=== PATIENT | female | born 1980 | race Caucasian/White ===

== ENCOUNTER 2019-12-01 11:05 | Emergency (ER) | payer BC, SELFPAY ==
[2019-12-01 11:14] VITALS: BP 206/112; PULSE 112; RESP 16; TEMP 37.2; O2SAT 95; BMI 41.1
--- NOTE | 2019-12-01 11:22 | ED_ITS ---
Entered by Eileen Liu, acting as scribe for HPI - Nausea/Vomiting/Diarrhea General: Chief complaint: Nausea/Vomiting/Diarrhea Stated complaint: Tired and weakness, N/V/D Time Seen by Provider: 12/01/19 11:22 Source: patient Mode of arrival: ambulatory Limitations: no limitations History of Present Illness: HPI Narrative: 39 yo female presents with nausea, vomiting and diarrhea. pt states this started several days ago. pt states she has had abdomen pain. pt states nothing makes this better or worse. pt denies any other symptoms at this time. MD elicited complaint: nausea, vomiting, diarrhea and abdominal pain Onset (ago): day(s) (several days) Description of vomiting: bilious Associated nausea: Yes Associated abdominal pain: Yes Pain consistency: constant Severity: mild Exacerbating factors: none Relieving factors: none Associated symtoms: Reports fatigue and nausea; Denies chest pain or dysuria Treatment prior to arrival: none Review of Systems General: Reports: 10 or more systems reviewed and unremarkable except in HPI and below Const: Reports: fatigue and change in sleep pattern ENMT: Denies: throat pain, ear pain, nasal discharge or nasal congestion Card: Denies: chest pain, edema, shortness of breath on exertion or shortness of breath when lying down Resp: Denies: shortness of breath, productive cough or non-productive cough GI: Reports: abdominal pain, nausea, vomiting and diarrhea : Denies: flank pain, difficulty urinating, painful urination, urinary frequency or urinary urgency Skin/Breast: Denies: rash or itching PFSH ED PFSH: Social History Smoking and tobacco status: never smoked Physical Exam Const: COMMON NORMALS: no apparent distress GENERAL APPEARANCE: cooperative and comfortable ORIENTATION/CONSCIOUSNESS: Yes awake, Yes oriented to person, Yes oriented to place and Yes oriented to time HENMT: COMMON NORMALS: normocephalic, head/scalp atraumatic, hearing grossly normal bilaterally, external ears normal, EAC's normal, TM's normal bilaterally, nasal mucous membranes and turbinates normal, moist oral mucous membranes and oropharynx normal HEAD & SCALP: normocephalic and atraumatic NOSE: nasal mucous membranes and turbinates normal EXTERNAL EAR: Yes external ears normal EXTERNAL AUDITORY CANAL: EAC's normal TYMPANIC MEMBRANE: TM's normal bilaterally Eye: COMMON NORMALS: PERRL, EOMs intact bilaterally, conjunctivae normal and no scleral icterus CONJUNCTIVA: Yes conjunctivae normal PUPIL: Yes PERRL Neck/C-Spine: COMMON NORMALS: full ROM, no lymphadenopathy, supple and no JVD Lymph: LYMPHATIC: no lymphadenopathy noted and no lymphedema noted Resp: COMMON NORMALS: normal respiratory effort, no retractions, no use of accessory muscles and clear to auscultation bilaterally AUSCULTATION: clear to auscultation bilaterally Cardio: COMMON NORMALS: no JVD, regular rate, regular rhythm and no murmurs RATE: regular rate RHYTHM: regular rhythm Extremity: COMMON NORMALS: normal to inspection, normal capillary refill, no clubbing, cyanosis or edema, no calf tenderness and no pedal edema Neuro: SENSORIUM/ORIENTATION: Yes oriented to person, Yes oriented to place and Yes oriented to time Skin: COMMON NORMALS: no rashes or lesions noted GENERAL SKIN EXAM: no rashes or lesions noted Course ED course: Reviewed findings with the patient. We will go and discharge home on antibiotics. Chest about her blood pressure initial blood pressure was over 200 blood pressure time of discharge 181/112. She tells me she chronically has elevated blood pressure when she is at the doctor's office or the ER not particularly inclined to treat her at this point on Thursday may actually cause some hypotension we did give her single dose of amlodipine asked her to follow- up with her primary care doctor's office for persist they can discuss with her putting her on long-term antihypertensives. She has worsening problems or change symptoms return to the emergency room. Vital Signs: Vital signs: Vital Signs Temperature 98.9 F 12/01/19 11:14 Pulse Rate 101 H 12/01/19 14:31 Respiratory Rate 16 12/01/19 14:31 Blood Pressure 181/112 12/01/19 14:31 Pulse Oximetry 96 12/01/19 14:31 MDM - Nausea/Vomiting/Diarrhea Lab Data: Labs: Lab Results 12/01/19 12/01/19 12/01/19 Range/Units 11:40 11:40 13:00 WBC 13.0 H (4.0-10.0) 10^3/ uL RBC 4.85 (4.1-5.3) 10^6/u L Hgb 11.7 (11.5-15.3) g/dL Hct 37.3 (37.0-47.0) % MCV 76.9 L (81-99) fL MCH 24.1 L (28.0-34.0) pg MCHC 31.4 (30.0-36.0) g/dL RDW 15.4 H (12.1-15.1) % Plt Count 553 H (130-400) 10^3/c mm MPV 8.7 (7.4-10.4) fL Neut % (Auto) 78.7 % Lymph % (Auto) 16.7 % [place] % (Auto) 3.8 % Eos % (Auto) 0.2 % Baso % (Auto) 0.3 % Neut # (Auto) 10.2 H (1.8-7.7) 10^3/u L Lymph # (Auto) 2.2 (0.8-4.8) 10^3/u L [place] # (Auto) 0.5 (0.2-0.9) 10^3/u L Eos # (Auto) 0.0 (0.0-0.8) 10^3/u L Baso # (Auto) 0.0 (0.0-0.1) 10^3/u L Nucleated RBC % (a uto) 0 % Nucleated RBCs # 0.0 /100WBC Sodium 136 (136-145) mmol/L Potassium 3.5 (3.5-5.1) mmol/L Chloride 97 L (98-107) mmol/L Carbon Dioxide 25 (22-29) mmol/L Anion Gap 17.5 (5-19) BUN 9 (6-20) mg/dL Creatinine 0.6 (0.5-0.9) mg/dL GFR Calculation 110.7 (90-130) mL/min Glucose 146 H (65-115) mg/dL Calcium 9.7 (8.5-10.5) mg/dL Total Bilirubin 0.2 (0.15-1.2) mg/dL AST 25 (0-32) U/L ALT 28 (0-33) U/L Alkaline Phosphata se 107 H (35-105) IU/L Total Protein 8.4 (6.6-8.7) g/dL Albumin 4.4 (3.5-5.2) g/dL Globulin 4.0 (1.3-4.6) g/dL Lipase 15 (13-60) U/L Urine Color Yellow (Yellow) Urine Appearance Sl hazy (CLEAR) Urine pH 6 (5-7) Ur Specific Gravit y 1.020 (1.005-1.030) Urine Protein 1+ H (Negative) Urine Glucose (UA) Norm (Normal) Urine Ketones 1+ H (Negative) Urine Blood Neg (Negative) Urine Nitrate Negative (Negative) Urine Bilirubin 1+ H (NEGATIVE) Urine Urobilinogen 1 H (Negative) mg/dL Ur Leukocyte Elif ase Negative (Negative) Urine RBC None (0-2) /hpf Urine WBC 0-4 H (0-5) /hpf Ur Squamous Epith Cells 25-40 H (0-5) Urine Bacteria Trace (NONE) Urine Mucus 1+ Imaging Data^: CXR: Radiologist's impression: [address] [address] XRay Report Signed Patient: Naye Mace #: [id number] : 1980Acct#:[id number] Age/Sex: 39 / FADM Date: 12/01/19 Loc: ERRoom/Bed: Attending Dr: Ordering Provider/Ordering MD: Louis Abernathy DO Date of Service: 12/01/19 Procedure(s): XR chest 1V portable [id number] Accession Number(s): [id number] Report Number: [id number] WS: [id number] XR chest 1V portable [id number] REASON FOR EXAM: dyspnea/cough FINDINGS: Comparison today of December 10, 2016. An alveolar infiltrate is seen in the basilar portion of the right lower lung. The heart and mediastinal interfaces are normal. There are scattered nodules in the left upper and mid lung but these all appear to be benign. The hilum and apices are normal. XR/XR chest 1V portable [id number] IMPRESSION: Early pneumonia right lower lung. Dictated By:Geovanny Michel DO Signed By:Geovanny Michel DOSigned Date/Time:12/01/19 3033 Discharge Plan Discharge Patient Disposition: Home, Self-Care Clinical Impression: Pneumonia Condition: Stable Prescriptions: New doxycycline hyclate 100 mg capsule 100 mg PO BID 10 Days Qty: 20 RF: 0 No Action Celexa 40 mg Tablet 40 mg PO DAILY RF: 0 Discharge Orders: Discharge Order (Routine); Ordered 12/01/19 Ordered By: Louis Abernathy Referrals: Tahir Evans MD [Family Provider] - Discharge Diet: Usual diet Discharge Activity: Resume usual activity Activity Restrictions/Additional Instructions: Follow-up with your primary care doctor return to emergency room if not improv ing Discharge Date/Time: 12/01/19 15:18 Coding Level of Care Code ED Health Coordinator for Chg Fwd Exam Comprehensive The documentation recorded by the Noe benjamin Bridget Annette, accurately reflects the service I personally performed and the decisions made by Josemanuel breaux Curtis L, DO Dec 01, 2019 11:05
--- NOTE | 2019-12-01 11:33 | XR_ITS ---
WS: [id number] XR chest 1V portable [id number] REASON FOR EXAM: dyspnea/cough FINDINGS: Comparison today of December 10, 2016. An alveolar infiltrate is seen in the basilar portion o f the right lower lung. The heart and mediastinal interfaces are normal. There are scattered nodules in the left upper and mid lung but these all appear to be benign. The hilum and apices are normal. XR/XR chest 1V portable [id number] IMPRESSION: Early pneumonia right lower lung.
[2019-12-01 11:47] LABS: Basophils % 0.3 %; Eosinophils % 0.2 %; Hematocrit 37.3 % (37.0-47.0); Hemoglobin 11.7 g/dL (11.5-15.3); Lymphocytes # 2.2 10^3/uL (0.8-4.8); Lymphocytes % 16.7 %; Mean Corpuscular HGB Conc 31.4 g/dL (30.0-36.0); Mean Corpuscular Hemoglobin 24.1 pg (28.0-34.0); Mean Corpuscular Volume 76.9 fL (81-99); Mean Platelet Volume 8.7 fL (7.4-10.4); Monocytes # 0.5 10^3/uL (0.2-0.9); Monocytes % 3.8 %; Neutrophils # 10.2 10^3/uL (1.8-7.7); Neutrophils % 78.7 %; Nucleated Red Blood Cells % 0 %; Platelet Count 553 10^3/cmm (130-400); Red Blood Count 4.85 10^6/uL (4.1-5.3); Red Cell Distribution Width 15.4 % (12.1-15.1)
[2019-12-01 12:05] LABS: Alanine Aminotransferase 28 U/L (0-33); Albumin Level 4.4 g/dL (3.5-5.2); Alkaline Phosphatase 107 IU/L (35-105); Anion Gap 17.5 (5-19); Aspartate Amino Transferase 25 U/L (0-32); Blood Urea Nitrogen 9 mg/dL (6-20); Calcium 9.7 mg/dL (8.5-10.5); Carbon Dioxide 25 mmol/L (22-29); Chloride 97 mmol/L (98-107); Creatinine Clr Calc Pharmacy 150.2548; Glomerular Filtration Rate 110.7 mL/min (90-130); Glucose 146 mg/dL (65-115); Lipase 15 U/L (13-60); Potassium 3.5 mmol/L (3.5-5.1); Sodium 136 mmol/L (136-145); Total Bilirubin 0.2 mg/dL (0.15-1.2); Total Protein 8.4 g/dL (6.6-8.7)
[2019-12-01 13:39] LABS: Urine Appearance SL Hazy (CLEAR); Urine Color Yellow (Yellow)
[2019-12-01 13:40] LABS: Add Urine Microscopic? YES; Bilirubin Urine 1+ (NEGATIVE); Blood Urine Neg (Negative); Glucose Urine UA Norm (Normal); Ketones Urine 1+ (Negative); Leukocyte Esterase Urine Negative (Negative); Nitrate Urine Negative (Negative); Protein Urine 1+ (Negative); Urobilinogen Urine 1 mg/dL (Negative); pH Urine 6 (5-7)
[2019-12-01 13:49] LABS: Bacteria Urine TRACE; Squamous Epithelial Cell Urine 25-40 (0-5); WBC Urine 0-4 /hpf (0-5)
[2019-12-01 13:50] LABS: Mucus Urine 1+
[2019-12-01] MEDS: amlodipine 5 mg Tablet PO (14:25)
--- NOTE | 2019-12-01 14:28 | PC.NURSE ---
PATIENT CONCERNED ABOUT HER BLOODPRESSURE EMD INFORMED AND ORDERS RECEIVED
[2019-12-01 14:31] VITALS: BP 181/112; PULSE 101; RESP 16; O2SAT 96
== END 2019-12-01 15:18 | disposition home or self-care (01) ==
PROVIDERS: Emergency Provider Family Medicine; Family Provider Family Medicine
DX: J18.9 Pneumonia, unspecified organism (principal); R03.0 Elevated blood-pressure reading, without diagnosis of hypertension
CPT/HCPCS: 12345; 36415; 71045; 80053; 81001; 83690; 85025; 99282; 99283; A9270

== ENCOUNTER 2020-03-05 13:24 | Outpatient (CLI) | payer BC, SELFPAY ==
--- NOTE | 2020-03-05 13:28 | MR_ITS ---
WS: [id number] MRI LEFT KNEE HISTORY: LEFT KNEE PAIN COMPARISON: 02/22/2020 Anterior cruciate ligament: There is increased T2 signal along the ACL. Fibers are intact although th ere is some fluid between the ACL and the condyle which suggests there may be a partial tear. Ligamen t is thin along the superior aspect. There is no complete tear. Posterior cruciate ligament: Intact. Medial collateral ligament: Intact. Posterior lateral corner structures: Intact. Medial menisci: Abnormal signal in the posterior horn. Abnormal signal extends to the superior articu lar surface in the mid body. There is abnormal signal throughout the posterior aspect of the meniscal horn which extends towards the inferior articular surface but may not completely through the meniscu s. Lateral meniscus: Intact. Normal signal, size and shape. Extensor mechanism: Distal quadriceps tendon and patellar tendons are intact. Fluid and soft tissue: There is a small suprapatellar joint effusion. There is small amount of fluid in the expected location of Monzon's cyst. There is an increased signal along the MCL. Osseous and articular structures: Patellofemoral compartment: Normal. Medial compartment: No marrow edema or fracture. Small subchondral cyst in the anterior medial femora l condyle. Lateral compartment: Negative. MR/MR knee LT wo con* [id number] IMPRESSION: 1. Complex tear posterior horn medial meniscus. Tear extends to the superior a rticular surface. Less certain the tear extends to the inferior articular surfa ce. 2. Mild MCL sprain. 3. Small joint effusion. 4. Increase fluid signal on the ACL. Partial tear suspected along the superior attachment.
== END 2020-03-05 13:25 | disposition home or self-care (01) ==
LOC: RADSHAW 13:26
PROVIDERS: Family Provider Family Medicine; PCP Family Medicine; Visit Provider Nurse Practitioner
DX: M25.562 Pain in left knee (principal); S83.242A Other tear of medial meniscus, current injury, left knee, initial encounter; X58.XXXA Exposure to other specified factors, initial encounter; M25.462 Effusion, left knee
CPT/HCPCS: 73721

== ENCOUNTER 2020-03-21 11:09 | Day surgery (SDC) | payer BC, SELFPAY ==
[2020-03-20 10:30] VITALS: BMI 41.1
[2020-03-21] VITALS (13 sets, daily range): BP systolic 120–183; BP diastolic 64–117; PULSE 81–105; RESP 15–23; TEMP 36.1–37.3; O2SAT 93–98
[2020-03-21] MEDS: sodium chloride 0.9% 500 ML 999 ML IV (11:37)
[2020-03-21 11:44] LABS: OR HCG Qualitative Urine Negative (Negative)
--- NOTE | 2020-03-21 11:52 | ANES.PREANE2 ---
Pre-Anesthetic Assessment Pre-Anesthetic Assessment: Height/Weight: Height 1.63 m Weight 108.862 kg Temp Pulse Resp BP Pulse Ox 98.1 F 105 H 20 H 183/117 96 03/21/20 11:20 03/21/20 11:20 03/21/20 11:20 03/21/20 11:20 03/21/20 11:20 Preop Diagnosis: Left medial meniscal tear Proposed Procedure: Operation Date: 03/21/20 12:35 Proposed Procedures p Left knee arthroscopy with medial meniscectomy (43872) S83.242A(Left) - Kumar Islas MD Familial anesthetic complications: NOne Was Beta Mattie taken within 24 hours: N/A Last intake: Intake Last Liquid Date 03/20/20 Last Liquid Time 23:40 Last Solid Date 03/20/20 Last Solid Time 23:40 Social: Social History: No alcohol and No tobacco Exam: Pre-Anes Outpt Exam: alert, oriented x 3, clear to auscultation bilaterally and regular rate & rhythm Additional Exam Findings (including area of procedure): no adderall for a couple of weeks Airway: Cervical ROM: WNL MP: 3 Dentition: Full Pulmonary: Pulmonary: None reported CV/HEM: CV/HEM: None reported : : None reported Hepatic: Hepatic: None reported GI: GI: None reported Metabolic: Metabolic: Morbid obesity Musc/skel: Musc/skel: None reported Neuropsych: Neuropsych: None reported Anesthetic Plan: ASA status: 2 Anesthesia: General Risk of > 500 ml blood loss (7ml/kg in children): No Meds/Allergies Current Medications: Current Medications Generic Name Dose Route Start Last Admin Trade Name Freq PRN Reason Stop Dose Admin Sodium Chloride 500 mls @ 999 mls /hr 03/21/20 08:33 03/21/20 11:37 Sodium Chloride 0.9% IV 999 mls/hr .Q31M PRN Administration HYPOTENSION PFSH Anesthesia PFSH: Social History Smoking and tobacco status: never smoked Female Reproductive History: Date of last menstrual period: 03/06/20 Data Anesthesia Other Labs: Laboratory Results - last 48 hr 03/21/20 11:43 Urine HCG, Qual Negative Cardiac Studies: No Data to Display
--- NOTE | 2020-03-21 12:31 | W.PM.OPSUD ---
Surgery/Procedure H&P Update DATE OF PROCEDURE: March 21, 2020 DATE H&P PERFORMED: 03/15/00 PREOP DIAGNOSIS: Left medial meniscal tear PLANNED PROCEDURE: Operation Date: 03/21/20 12:35 Proposed Procedures p Left knee arthroscopy with medial meniscectomy (79055) S83.242A(Left) - Kumar Islas MD
[2020-03-21] MEDS: morphine 4 mg/mL SDV 1 mL 8 MG XX (13:01)
--- NOTE | 2020-03-21 13:18 | PM.OP ---
Operative Report Date of procedure: March 21, 2020 Pre-op Diagnosis: Left medial meniscal tear Post-op diagnosis: same Post-op Findings: Same Procedure Done: Arthroscopic partial left medial meniscectomy Surgeon: Kumar Islas Anesthesia: General Estimated blood loss (mL): 5 Tourniquet time (min): 0 Findings: The patient had a flap tear in the middle third of the medial meniscus involving approximately the central 60%. There is minimal softening and fibrillation over the medial femoral condyle. The lateral compartment and patellofemoral compartment were pristine Condition: stable Disposition: PACU Procedure: The patient was taken to the operating room and given a general anesthesia. Knee was infiltrated with 30 cc of 0.5% Marcaine and 10 mg of morphine. The leg was prepped and draped in the usual fashion and a timeout performed. The knee was entered through standard inferior medial and inferior lateral portals. The diagnostic portion of the arthroscopy was performed and the flap tear of the medial meniscus identified. The tear appeared relatively dysvascular and was not thought to be suitable for repair. Realizing an incisor shaver the flap was debrided back with ease to a stable rim leaving approximately 30 to 40% of the middle third of the meniscus remaining. The rim was cleaned up with a [employer] probe leaving a stable base of tissue. Areas of softening and slight fissuring over the medial femoral condyle was stable not thought to benefit from additional debridement. Cruciate collateral ligaments were inspected and found to be healthy. The lateral compartment is inspected and found to be free of chondromalacia with a normal lateral meniscus. The patellofemoral compartment was inspected and found to be free of chondromalacia. The knee was irrigated with saline. Portals were closed with 3-0 Prolene. Sterile dressings were applied. The patient was extubated taken recovery in stable condition.
[2020-03-21] MEDS: fentaNYL 50 mcg/mL INJ 2mL IVP (13:39)
[2020-03-21] MEDS: morphine 4 mg/mL SDV 1 mL 2 MG IVP (13:45)
--- NOTE | 2020-03-21 14:03 | SUR.PHASEI ---
1400 PATIENT TO OPS. DRESSING INTACT TO LEFT KNEE, LEFT PEDAL PULSE STRONG AND INTACT. ICE PACK IN PLACE FOR COMFORT.
[2020-03-21] MEDS: HYDROcodone-acetaminophen 7.5-325 mg Tablet 1 TAB PO (14:37)
== END 2020-03-21 14:58 | disposition home or self-care (01) ==
PROVIDERS: Anesthesiology; PCP Family Medicine; Visit Provider Orthopaedic Surgery
PROC: (CPT 29870; principal; 2020-03-21 12:35)
DX: S83.242A Other tear of medial meniscus, current injury, left knee, initial encounter (principal); X58.XXXA Exposure to other specified factors, initial encounter; I10 Essential (primary) hypertension; E66.01 Morbid (severe) obesity due to excess calories; Z68.41 Body mass index [BMI] 40.0-44.9, adult
CPT/HCPCS: 29881; 12345; 84703; J0690; J1100; J1885; J2001; J2250; J2270; J2405; J2704; J3010; J3490; J7040

== ENCOUNTER 2020-11-02 01:28 | Emergency (ER) | payer SELFPAY ==
[2020-11-02 01:32] VITALS: BP 142/114; PULSE 119; RESP 28; TEMP 36.7; O2SAT 99; BMI 39.4
--- NOTE | 2020-11-02 01:33 | CTR_ITS ---
PROCEDURE INFORMATION: Exam: CT Neck With Contrast Exam date and time: 11/02/2020 1:55 AM Age: 40 years old Clinical indication: Dysphagia / difficulty swallowing and dyspnea / difficulty breathing; Painful swallowing and throat pain; Patient HX: Submandibular swelling and dysphagia. C/O pain. Adenoidectomy. ; Additional info: Abscess TECHNIQUE: Imaging protocol: Computed tomography images of the neck with intravenous contrast. Radiation optimization: All CT scans at this facility use at least one of these dose optimization techniques: automated exposure control; mA and/or kV adjustment per patient size (includes targeted exams where dose is matched to clinical indication); or iterative reconstruction. Contrast material: OMNI 300; Contrast volume: 95 ml; Contrast route: INTRAVENOUS (IV); COMPARISON: No relevant prior studies available. RADIATION DOSE METRICS: Total DLP (mGy-cm): 690.01 FINDINGS: Nasopharynx: Unremarkable. Oropharynx: A calcification is seen within the left tonsil compatible with a tonsillolith. There is marked swelling of the right tonsil. The tonsil measures approximately 3.8 cm AP dimension by 3.1 cm transverse dimension by 4.6 cm craniocaudal dimension. There is heterogeneous hypodense material seen diffusely within the right tonsil compatible with tonsillar abscess formation. Fluid attenuation and edema seen within the fascial planes extending from the pterygoid process on the right caudally to the level of the hyoid bone. Hypopharynx: Unremarkable. Larynx: Unremarkable. Normal epiglottis. Retropharyngeal space: Unremarkable. Submandibular/Parotid glands: Normal. Glands are normal in size. Thyroid: Normal. No enlarged or calcified nodules. Lymph nodes: There are prominent level 1 and 1B lymph nodes seen on the right, the largest seen at level 1B measuring 14.6 mm transverse dimension. Trachea: Visualized trachea is unremarkable. Lungs: Unremarkable as visualized. Bones/joints: See Oropharynx finding. Soft tissues: Unremarkable. No significant soft tissue swelling. CT/CT neck w con* [id number] IMPRESSION: 1. Right tonsillitis with prominent tonsillar swelling and abscess formation. 2. Prominent level 1 and 1B lymph nodes seen on the right. Radiation Dose CTDIVOL = (mGy): DLP = 690.01 (mGy-cm)
[2020-11-02 01:41] LABS: Basophils # 0.1 10^3/uL (0.0-0.1); Basophils % 0.4 %; Eosinophils # 0.1 10^3/uL (0.0-0.8); Eosinophils % 0.5 %; Hematocrit 36.7 % (37.0-47.0); Hemoglobin 11.2 g/dL (11.5-15.3); Lymphocytes # 2.3 10^3/uL (0.8-4.8); Lymphocytes % 10.4 %; Mean Corpuscular HGB Conc 30.5 g/dL (30.0-36.0); Mean Corpuscular Hemoglobin 23.3 pg (28.0-34.0); Mean Corpuscular Volume 76.5 fL (81-99); Mean Platelet Volume 8.7 fL (7.4-10.4); Monocytes # 1.7 10^3/uL (0.2-0.9); Monocytes % 7.9 %; Neutrophils # 17.79 10^3/uL (1.8-7.7); Neutrophils % 80.5 %; Nucleated Red Blood Cells % 0 %; Platelet Count 572 10^3/cmm (130-400); Red Cell Distribution Width 15.4 % (12.1-15.1); White Blood Count 22.1 10^3/uL (4.0-10.0)
[2020-11-02] MEDS: sodium chloride 0.9% 1,000 ML 999 ML IV (01:42)
[2020-11-02] MEDS: dexamethasone 4 mg/mL INJ 10 MG IVP (01:44)
[2020-11-02] MEDS: clindamycin 900 MG/50 ML PREMIX 100 MG IV (01:46)
--- NOTE | 2020-11-02 01:49 | W.ED.URI ---
HPI - URI/Sore Throat General: Chief Complaint: Upper Respiratory Infection Stated Complaint: difficulty breathing, throat swelling Time Seen by Provider: 11/02/20 01:30 Source: patient Mode of arrival: ambulatory Limitations: no limitations History of Present Illness: HPI Narrative: 40-year-old female states she has had a sore throat over the last 2 days. States she now feels like she is swelling her throat does have a muffled voice. States she is having some pain with swallowing difficulty swallowing. She denies any shortness of breath. She has any worsening improving factors. She has no history of peritonsillar abscess in the past. Denies any vomiting or diarrhea. Associated symptoms: Deny abdominal pain, chills, chest pain, diarrhea, fever(s), headache(s), nausea or vomiting Review of Systems Const: Denies: fever(s), chills, body aches or change in appetite Eyes: Denies: blurry vision or eye discomfort ENMT: Reports: throat pain; Denies: dental pain Card: Denies: chest pain Resp: Denies: dyspnea GI: Denies: abdominal pain, nausea, vomiting or diarrhea : Denies: dysuria Musc: Denies: neck pain or back pain Skin/Breast: Denies: rash Neuro: Denies: headache(s) Psych: Denies: depression Adilson/Lymph: Denies: easy bruising All/Imm: Denies: urticaria PFSH ED PFSH: Social History Smoking and tobacco status: never smoked Female Reproductive History: Date of last menstrual period: 03/06/20 Physical Exam Const: COMMON NORMALS: no acute distress, patient oriented x3 and healthy appearing HENMT: COMMON NORMALS: normocephalic and atraumatic HEAD & SCALP: normocephalic and atraumatic OTHER: Likely peritonsillar abscess to the right with uvula deviation. She is able to handle her secretions and swallow Eye: COMMON NORMALS: Equal, round and reactive pupils present and EOMs intact bilaterally PUPIL: Yes Equal, round and reactive pupils present Neck/C-Spine: COMMON NORMALS: full ROM and supple Chest: COMMONS NORMALS: normal inspection of the chest and normal palpation of entire chest wall Resp: COMMON NORMALS: normal respiratory effort, No retractions, No use of accessory muscles and clear to auscultation bilaterally AUSCULTATION: clear to auscultation bilaterally Cardio: COMMON NORMALS: regular rate, regular rhythm and No murmurs present (Cardio) RATE: regular rate RHYTHM: regular rhythm GI: COMMON NORMALS: Normal to inspection, nondistended, normoactive bowel sounds present, Soft to palpation, non-tender and no masses PALPATION: Yes Soft to palpation Extremity: COMMON NORMALS: normal to inspection and full ROM Neuro: COMMON NORMALS: patient oriented x3, moves all extremities and no focal motor deficits Psych: COMMON NORMALS: mental status grossly normal, Normal thought process present and cooperative THOUGHT PROCESS: Normal thought process present Skin: COMMON NORMALS: no rashes or lesions noted and no wounds GENERAL SKIN EXAM: no rashes or lesions noted Course Vital Signs: Vital signs: Vital Signs Temperature 98.1 F 11/02/20 01:32 Pulse Rate 96 11/02/20 03:44 Respiratory Rate 20 H 11/02/20 03:44 Blood Pressure 183/93 11/02/20 03:44 Pulse Oximetry 98 11/02/20 03:44 MDM - URI/Sore Throat MDM Narrative: Medical decision making narrative: Patient presents with peritonsillar abscess. She able to protect her own airway and handling secretions. I did offer to drain her abscess here but she states she would like to have it drained by ENT. I did speak to ENT at [facility] and they are going to see her in the morning. Patient has had improvement here with clindamycin and Decadron IV. Will prescribe her antibiotics for home as well. She is return if worsening and she understands agrees to plan. Lab Data: Labs: Lab Results 11/02/20 11/02/20 Range/Units 01:39 01:39 WBC 22.1 H (4.0-10.0) 10^3/ uL RBC 4.80 (4.1-5.3) 10^6/u L Hgb 11.2 L (11.5-15.3) g/dL Hct 36.7 L (37.0-47.0) % MCV 76.5 L (81-99) fL MCH 23.3 L (28.0-34.0) pg MCHC 30.5 (30.0-36.0) g/dL RDW 15.4 H (12.1-15.1) % Plt Count 572 H (130-400) 10^3/c mm MPV 8.7 (7.4-10.4) fL Neut % (Auto) 80.5 % Lymph % (Auto) 10.4 % [place] % (Auto) 7.9 % Eos % (Auto) 0.5 % Baso % (Auto) 0.4 % Neut # (Auto) 17.79 H (1.8-7.7) 10^3/u L Lymph # (Auto) 2.3 (0.8-4.8) 10^3/u L [place] # (Auto) 1.7 H (0.2-0.9) 10^3/u L Eos # (Auto) 0.1 (0.0-0.8) 10^3/u L Baso # (Auto) 0.1 (0.0-0.1) 10^3/u L Nucleated RBC % (a uto) 0 % Nucleated RBCs # 0.0 /100WBC Sodium 135 L (136-145) mmol/L Potassium 3.5 (3.5-5.1) mmol/L Chloride 97 L (98-107) mmol/L Carbon Dioxide 26 (22-29) mmol/L Anion Gap 15.5 (5-19) BUN 7 (6-20) mg/dL Creatinine 0.5 (0.5-0.9) mg/dL GFR Calculation 136.0 H (90-130) mL/min Glucose 127 H (65-115) mg/dL Calculated Osmolal ity 280 L (285-295) mOsm/k g Calcium 8.8 (8.5-10.5) mg/dL Total Bilirubin 0.4 (0.15-1.2) mg/dL AST 12 (0-32) U/L ALT 14 (0-33) U/L Alkaline Phosphata se 124 H (35-105) IU/L Total Protein 8.2 (6.6-8.7) g/dL Albumin 3.8 (3.5-5.2) g/dL Globulin 4.4 (1.3-4.6) g/dL Imaging Data^: Other CT: Radiologist's impression: [address] [address] [address] Scan Report Signed Patient: Naye Mace Unit #: [id number] : 1980 Age/Sex: 40 / F ADM Date: 11/02/20 Loc: ER Room/Bed: Attending Dr: Ordering Provider/Ordering MD: Robert Garvey MD Date of Service: 11/02/20 Procedure(s): CT neck w con* [id number] Accession Number(s): [id number] Report Number: [id number] PROCEDURE INFORMATION: Exam: CT Neck With Contrast Exam date and time: 11/02/2020 1:55 AM Age: 40 years old Clinical indication: Dysphagia / difficulty swallowing and dyspnea / difficulty breathing; Painful swallowing and throat pain; Patient HX: Submandibular swelling and dysphagia. C/O pain. Adenoidectomy. ; Additional info: Abscess TECHNIQUE: Imaging protocol: Computed tomography images of the neck with intravenous contrast. Radiation optimization: All CT scans at this facility use at least one of these dose optimization techniques: automated exposure control; mA and/or kV adjustment per patient size (includes targeted exams where dose is matched to clinical indication); or iterative reconstruction. Contrast material: OMNI 300; Contrast volume: 95 ml; Contrast route: INTRAVENOUS (IV); COMPARISON: No relevant prior studies available. RADIATION DOSE METRICS: Total DLP (mGy-cm): 690.01 FINDINGS: Nasopharynx: Unremarkable. Oropharynx: A calcification is seen within the left tonsil compatible with a tonsillolith. There is marked swelling of the right tonsil. The tonsil measures approximately 3.8 cm AP dimension by 3.1 cm transverse dimension by 4.6 cm craniocaudal dimension. There is heterogeneous hypodense material seen diffusely within the right tonsil compatible with tonsillar abscess formation. Fluid attenuation and edema seen within the fascial planes extending from the pterygoid process on the right caudally to the level of the hyoid bone. Hypopharynx: Unremarkable. Larynx: Unremarkable. Normal epiglottis. Retropharyngeal space: Unremarkable. Submandibular/Parotid glands: Normal. Glands are normal in size. Thyroid: Normal. No enlarged or calcified nodules. Lymph nodes: There are prominent level 1 and 1B lymph nodes seen on the right, the largest seen at level 1B measuring 14.6 mm transverse dimension. Trachea: Visualized trachea is unremarkable. Lungs: Unremarkable as visualized. Bones/joints: See Oropharynx finding. Soft tissues: Unremarkable. No significant soft tissue swelling. CT/CT neck w con* [id number] IMPRESSION: 1. Right tonsillitis with prominent tonsillar swelling and abscess formation. 2. Prominent level 1 and 1B lymph nodes seen on the right. Radiation Dose CTDIVOL = (mGy): DLP = 690.01 (mGy-cm) Discharge Plan Discharge Patient Disposition: Home Clinical Impression: Abscess, peritonsillar Condition: Stable Prescriptions: New [place] 5-325 mg tablet 1 tab PO Q6H PRN (Reason: pain) Qty: 14 RF: 0 ondansetron 4 mg tablet,disintegrating 4 mg PO Q6H PRN (Reason: nausea and vomiting) Qty: 14 RF: 0 clindamycin HCl 300 mg capsule 300 mg PO TID 7 Days Qty: 21 RF: 0 No Action hydrocodone-acetaminophen [[place]] 7.5-325 mg tablet 1 tab PO Q4H PRN (Reason: pain) 7 Days Qty: 30 RF: 0 hydrocodone-acetaminophen [[place]] 7.5-325 mg tablet 1 tab PO Q4H PRN (Reason: pain) 7 Days Qty: 30 RF: 0 citalopram [Celexa] 40 mg Tablet 40 mg PO DAILY RF: 0 dextroamphetamine-amphetamine [Adderall XR] 15 mg Capsule,Extended Release 24hr 15 mg PO DAILY RF: 0 [place] 7.5-325 mg tablet 1 tab PO Q4H Qty: 30 RF: 0 Discharge Orders: Discharge ED (Routine); Ordered 11/02/20 Ordered By: Robert Garvey Referrals: [facility] [Other] - 1-3 days [facility] [Other] - 1-3 days Tahir Evans MD [Primary Care Provider] - Discharge Diet: Advance as tolerated Discharge Activity: Resume usual activity Patient Instructions: Peritonsillar Abscess (ED) Coding Level of Care Code ED Judicial Reporter for Gonzalezg Fwd Exam Comprehensive
[2020-11-02] MEDS: iohexol 300 mg/mL 100 mL Btl IV (02:01)
[2020-11-02 02:07] LABS: Alanine Aminotransferase 14 U/L (0-33); Albumin Level 3.8 g/dL (3.5-5.2); Alkaline Phosphatase 124 IU/L (35-105); Anion Gap 15.5 (5-19); Aspartate Amino Transferase 12 U/L (0-32); Blood Urea Nitrogen 7 mg/dL (6-20); Calcium 8.8 mg/dL (8.5-10.5); Carbon Dioxide 26 mmol/L (22-29); Chloride 97 mmol/L (98-107); Globulin 4.4 g/dL (1.3-4.6); Glucose 127 mg/dL (65-115); Osmolality Calculated 280 mOsm/kg (285-295); Potassium 3.5 mmol/L (3.5-5.1); Sodium 135 mmol/L (136-145); Total Bilirubin 0.4 mg/dL (0.15-1.2); Total Protein 8.2 g/dL (6.6-8.7)
[2020-11-02 02:26] VITALS: BP 167/92; PULSE 94; RESP 19; O2SAT 94
[2020-11-02 03:03] VITALS: BP 158/102; PULSE 88; RESP 18; O2SAT 96
[2020-11-02] MEDS: morphine 4 mg/mL SDV 1 mL IVP (03:43)
[2020-11-02 03:44] VITALS: BP 183/93; PULSE 96; RESP 20; O2SAT 98
[2020-11-02] MEDS: HYDROcodone-acetaminophen 7.5-325 mg Tablet 1 TAB PO (04:44)
[2020-11-02 05:04] VITALS: BP 142/102; PULSE 88; RESP 18; O2SAT 95
== END 2020-11-02 05:04 | disposition home or self-care (01) ==
PROVIDERS: Emergency Provider Emergency Medicine; PCP Family Medicine
DX: J36 Peritonsillar abscess (principal)
CPT/HCPCS: 12345; 70491; 80053; 85025; 96365; 96375; 99283; J1100; J2270; J3490; J7030; Q9967

== ENCOUNTER 2020-11-03 15:29 | Emergency (ER) | payer BC, SELFPAY ==
[2020-11-03] VITALS (22 sets, daily range): BP systolic 81–156; BP diastolic 45–94; PULSE 56–132; RESP 14–18; TEMP 36.8; O2SAT 96–100; BMI 40.7
--- NOTE | 2020-11-03 15:38 | CTR_ITS ---
PROCEDURE INFORMATION: Exam: CT Neck With Contrast Exam date and time: 11/03/2020 5:04 PM Age: 40 years old Clinical indication: Abscess, tonsil and dysphagia / difficulty swallowing and dyspnea / difficulty breathing; Prior surgery; Surgery date: Post-operative (0-2 days); Surgery type: Lanced abcess; Patient HX: R tonsilar abcess lanced yesterday now w difficulty swallowing talking breathing - et and ng in place; Additional info: Peritonsilar abscess TECHNIQUE: Imaging protocol: Computed tomography images of the neck with intravenous contrast. Radiation optimization: All CT scans at this facility use at least one of these dose optimization techniques: automated exposure control; mA and/or kV adjustment per patient size (includes targeted exams where dose is matched to clinical indication); or iterative reconstruction. Contrast material: OMNI 300; Contrast volume: 95 ml; Contrast route: INTRAVENOUS (IV); COMPARISON: CT neck w con* [id number] 11/02/2020 1:59 AM RADIATION DOSE METRICS: Total DLP (mGy-cm): 737.67 FINDINGS: Tubes, catheters and devices: Nasogastric tube is also seen. Nasopharynx: Unremarkable. Oropharynx: There is marked swelling of the right tonsils as noted on the previous examination. The tonsillar abscesses and peritonsillar abscesses are less well-defined than on the previous examination. There may be slightly greater swelling in the retropharyngeal space on the right to the level of the hyoid bone but the distribution of edema is otherwise not significantly changed. Hypopharynx: Unremarkable. Larynx: Unremarkable. Normal epiglottis. Retropharyngeal space: See Oropharynx finding. Submandibular/Parotid glands: Normal. Glands are normal in size. Thyroid: Normal. No enlarged or calcified nodules. Lymph nodes: Unremarkable. No lymphadenopathy. Trachea: There is an endotracheal tube in place in satisfactory position. Lungs: There is some minimal pulmonary atelectasis in the right apical region which is new from the previous study. Bones/joints: Unremarkable. No acute fracture. Soft tissues: Unremarkable. No significant soft tissue swelling. CT/CT neck w con* [id number] IMPRESSION: There has been slight increase in the inferior aspect of the soft tissue swelling on the right. The tonsillar abscess is less conspicuous. Radiation Dose CTDIVOL = (mGy): DLP = 737.67 (mGy-cm)
--- NOTE | 2020-11-03 15:47 | W.ED.GENADLT ---
HPI - General Adult General: Chief complaint: Airway/Esophagus Foreign Body Stated complaint: Abcess in throat Time Seen by Provider: 11/03/20 15:38 History of Present Illness: HPI narrative: 40-year-old female seen 36 hours ago in emergency room with an abscess in the right peritonsillar area shown on CT. She was offered to have it drained here instead she wanted to go back to [facility]. She did do that she said now it recurred and is larger than it was previously. Previous ER note reviewed. On presentation patient is having slight trouble breathing. She states that she cannot swallow saliva and is having a difficult time breathing. Her voice is very hoarse and muffled. Onset (ago): day(s) Location: neck Severity: moderate Quality: aching Pain Consistency: constant Relieving factors: none Exacerbating factors: eating Associated symptoms: Reports nausea; Deny chest pain, confusion, cough, diaphoresis, decreased appetite, dyspnea, fevers/chills, headache(s), malaise, rash, palpitations, seizures, short of breath, syncope, vomiting or weakness Treatments prior to arrival: other (Oral antibiotics and previous drainage.) Review of Systems Const: Denies: malaise or diaphoresis ENMT: Reports: throat pain; Denies: ear or mastoid pain, nasal discharge or nasal congestion Card: Denies: chest pain, palpitations or syncope Resp: Denies: dyspnea, productive cough or non-productive cough GI: Reports: nausea; Denies: vomiting : Denies: flank pain, difficulty voiding, dysuria, urinary frequency or urinary urgency Skin/Breast: Denies: rash Neuro: Denies: headache(s) or confusion [facility] ED PFSH: Social History Smoking and tobacco status: never smoked Female Reproductive History: Date of last menstrual period: 03/06/20 Physical Exam Const: COMMON NORMALS: no acute distress GENERAL APPEARANCE: cooperative and comfortable ORIENTATION/CONSCIOUSNESS: Yes awake, Yes oriented to person, Yes oriented to place and Yes oriented to time HENMT: COMMON NORMALS: atraumatic and hearing grossly normal bilaterally HEAD & SCALP: atraumatic OTHER: Significant swelling of the posterior pharynx on the right side distorting all landmarks uvula is not visualized. Posterior pharyngeal wall is not visualized. Eye: COMMON NORMALS: Equal, round and reactive pupils present, EOMs intact bilaterally, conjunctivae normal and no scleral icterus CONJUNCTIVA: Yes conjunctivae normal PUPIL: Yes Equal, round and reactive pupils present Neck/C-Spine: COMMON NORMALS: full ROM, no lymphadenopathy, supple and no JVD Lymph: LYMPHATIC: no lymphadenopathy noted and no lymphedema noted Resp: COMMON NORMALS: normal respiratory effort, No retractions, No use of accessory muscles and clear to auscultation bilaterally AUSCULTATION: clear to auscultation bilaterally Cardio: COMMON NORMALS: no JVD, regular rate, regular rhythm and No murmurs present (Cardio) RATE: regular rate RHYTHM: regular rhythm GI: COMMON NORMALS: Soft to palpation and No hepatosplenomegaly present AUSCULTATION: Yes normoactive bowel sounds PALPATION: Yes Soft to palpation, No Tenderness to palpation present (GI), No Guarding due to palpation present (GI) and Yes No hepatosplenomegaly present Extremity: COMMON NORMALS: normal to inspection, capillary refill normal, no clubbing, cyanosis or edema, no calf tenderness and no pedal edema Neuro: SENSORIUM/ORIENTATION: Yes oriented to person, Yes oriented to place and Yes oriented to time Skin: COMMON NORMALS: no rashes or lesions noted GENERAL SKIN EXAM: no rashes or lesions noted Course Vital Signs: Vital signs: Vital Signs Temperature 98.3 F 11/03/20 15:45 Pulse Rate 119 H 11/03/20 16:50 Respiratory Rate 17 11/03/20 17:22 Blood Pressure 156/94 11/03/20 16:50 Pulse Oximetry 97 11/03/20 16:50 MDM - General Adult MDM Narrative: Medical decision making narrative: Patient has significant airway compromise anesthesia was immediately called for awake intubation. We did try to call Dr. Gentile's but he is not on-call and we could not locate him. Dr. Bains and assisted by Bradley Santoro as well as Dr. Nilesh Hoyt came down and performed an awake intubation in the ER. See their notes. [facility] has declined to accept on transfer were trying to make arrangements for the patient to go to [facility]. Dr. Delacruz called back. He is ENT at [facility] for making arrangements for her to be a direct admission to the ICU. WE do not haveENT coverage today. Lab Data: Labs: Lab Results 11/03/20 11/03/20 11/03/20 Range/Units 15:52 15:52 15:52 WBC 20.8 H (4.0-10.0) 10^3/ uL RBC 4.89 (4.1-5.3) 10^6/u L Hgb 11.4 L (11.5-15.3) g/dL Hct 36.8 L (37.0-47.0) % MCV 75.3 L (81-99) fL MCH 23.3 L (28.0-34.0) pg MCHC 31.0 (30.0-36.0) g/dL RDW 15.3 H (12.1-15.1) % Plt Count 714 H (130-400) 10^3/c mm MPV 8.8 (7.4-10.4) fL Neut % (Auto) 80.3 % Lymph % (Auto) 11.6 % [place] % (Auto) 7.3 % Eos % (Auto) 0.1 % Baso % (Auto) 0.4 % Neut # (Auto) 16.73 H (1.8-7.7) 10^3/u L Lymph # (Auto) 2.4 (0.8-4.8) 10^3/u L [place] # (Auto) 1.5 H (0.2-0.9) 10^3/u L Eos # (Auto) 0.0 (0.0-0.8) 10^3/u L Baso # (Auto) 0.1 (0.0-0.1) 10^3/u L Nucleated RBC % (a uto) 0 % Nucleated RBCs # 0.0 /100WBC Sodium 135 L (136-145) mmol/L Potassium 3.5 (3.5-5.1) mmol/L Chloride 95 L (98-107) mmol/L Carbon Dioxide 27 (22-29) mmol/L Anion Gap 16.5 (5-19) BUN 13 (6-20) mg/dL Creatinine 0.5 (0.5-0.9) mg/dL GFR Calculation 136.0 H (90-130) mL/min Glucose 115 (65-115) mg/dL Calculated Osmolal ity 281 L (285-295) mOsm/k g Lactic Acid 1.1 (0.5-2.2) mmol/L Calcium 9.3 (8.5-10.5) mg/dL Total Bilirubin 0.3 (0.15-1.2) mg/dL AST 12 (0-32) U/L ALT 11 (0-33) U/L Alkaline Phosphata se 126 H (35-105) IU/L Total Protein 8.8 H (6.6-8.7) g/dL Albumin 3.9 (3.5-5.2) g/dL Globulin 4.9 H (1.3-4.6) g/dL SARS-CoV-2 Ag (Rap id) (Negative) 11/03/20 Range/Units 16:44 WBC (4.0-10.0) 10^3/ uL RBC (4.1-5.3) 10^6/u L Hgb (11.5-15.3) g/dL Hct (37.0-47.0) % MCV (81-99) fL MCH (28.0-34.0) pg MCHC (30.0-36.0) g/dL RDW (12.1-15.1) % Plt Count (130-400) 10^3/c mm MPV (7.4-10.4) fL Neut % (Auto) % Lymph % (Auto) % [place] % (Auto) % Eos % (Auto) % Baso % (Auto) % Neut # (Auto) (1.8-7.7) 10^3/u L Lymph # (Auto) (0.8-4.8) 10^3/u L [place] # (Auto) (0.2-0.9) 10^3/u L Eos # (Auto) (0.0-0.8) 10^3/u L Baso # (Auto) (0.0-0.1) 10^3/u L Nucleated RBC % (a uto) % Nucleated RBCs # /100WBC Sodium (136-145) mmol/L Potassium (3.5-5.1) mmol/L Chloride (98-107) mmol/L Carbon Dioxide (22-29) mmol/L Anion Gap (5-19) BUN (6-20) mg/dL Creatinine (0.5-0.9) mg/dL GFR Calculation (90-130) mL/min Glucose (65-115) mg/dL Calculated Osmolal ity (285-295) mOsm/k g Lactic Acid (0.5-2.2) mmol/L Calcium (8.5-10.5) mg/dL Total Bilirubin (0.15-1.2) mg/dL AST (0-32) U/L ALT (0-33) U/L Alkaline Phosphata se (35-105) IU/L Total Protein (6.6-8.7) g/dL Albumin (3.5-5.2) g/dL Globulin (1.3-4.6) g/dL SARS-CoV-2 Ag (Rap id) Negative (Negative) Critical Care Time Critical Care Time: Critical Care Time: Yes Total Critical Care Time: 44 Attestation: This case had a high probability of a clinically significant, sudden, or life threatening deterioration of this patient's condition which required my full and direct attention, intervention and personal management. Discharge Plan Discharge Patient Disposition: Transfer to ED Clinical Impression: Abscess, peritonsillar, Airway compromise Condition: Stable Prescriptions: No Action hydrocodone-acetaminophen [[place]] 7.5-325 mg tablet 1 tab PO Q4H PRN (Reason: pain) 7 Days Qty: 30 RF: 0 citalopram [Celexa] 40 mg Tablet 40 mg PO DAILY RF: 0 dextroamphetamine-amphetamine [Adderall XR] 15 mg Capsule,Extended Release 24hr 15 mg PO DAILY RF: 0 hydrocodone-acetaminophen [[place]] 5-325 mg tablet 1 tab PO Q6H PRN (Reason: pain) Qty: 14 RF: 0 ondansetron 4 mg tablet,disintegrating 4 mg PO Q6H PRN (Reason: nausea and vomiting) Qty: 14 RF: 0 clindamycin HCl 300 mg capsule 300 mg PO TID 7 Days Qty: 21 RF: 0 Referrals: Tahir Evans MD [Primary Care Provider] - Coding Level of Care Code ED Stave Bolt Equalizer for Gonzalezg Fwd Exam Comprehensive
[2020-11-03] MEDS: clindamycin 600 MG/50 ML PREMIX 100 MG IV (16:09)
[2020-11-03] MEDS: ondansetron 2 mg/ML SDV 2 mL 4 MG IVP (16:09)
[2020-11-03] MEDS: dexamethasone 10 mg/mL INJ IVP (16:09)
[2020-11-03] MEDS: sodium chloride 0.9% 1,000 ML 999 ML IV ×2 (16:10→20:02)
[2020-11-03 16:11] LABS: Basophils # 0.1 10^3/uL (0.0-0.1); Basophils % 0.4 %; Eosinophils % 0.1 %; Hematocrit 36.8 % (37.0-47.0); Hemoglobin 11.4 g/dL (11.5-15.3); Lymphocytes # 2.4 10^3/uL (0.8-4.8); Lymphocytes % 11.6 %; Mean Corpuscular Hemoglobin 23.3 pg (28.0-34.0); Mean Corpuscular Volume 75.3 fL (81-99); Mean Platelet Volume 8.8 fL (7.4-10.4); Monocytes # 1.5 10^3/uL (0.2-0.9); Monocytes % 7.3 %; Neutrophils # 16.73 10^3/uL (1.8-7.7); Neutrophils % 80.3 %; Nucleated Red Blood Cells % 0 %; Platelet Count 714 10^3/cmm (130-400); Red Blood Count 4.89 10^6/uL (4.1-5.3); Red Cell Distribution Width 15.3 % (12.1-15.1); White Blood Count 20.8 10^3/uL (4.0-10.0)
[2020-11-03] MEDS: lidocaine 2% INJ 20 mL 40 ML INJECTION (16:18)
[2020-11-03] MEDS: glycopyrrolate 0.2 mg/mL SDV 2 mL 0.4 MG IV (16:18)
[2020-11-03] MEDS: lidocaine 2% viscous 15 mL UDC 20 ML TOPICAL (16:19)
[2020-11-03] MEDS: propofol 1,000 MG/100 ML INJ 3.1 MG IV (16:21)
[2020-11-03] MEDS: dexmedetomidine 400 MCG in sodium chloride 0.9% (100 ml) 100 ML IV (16:22)
[2020-11-03] MEDS: midazolam 1 mg/mL INJ 2 mL 2 MG IVP (16:32)
[2020-11-03] MEDS: fentaNYL 50 mcg/mL INJ 2mL IVP (16:34)
[2020-11-03 16:39] LABS: Alanine Aminotransferase 11 U/L (0-33); Albumin Level 3.9 g/dL (3.5-5.2); Alkaline Phosphatase 126 IU/L (35-105); Anion Gap 16.5 (5-19); Aspartate Amino Transferase 12 U/L (0-32); Blood Urea Nitrogen 13 mg/dL (6-20); Calcium 9.3 mg/dL (8.5-10.5); Carbon Dioxide 27 mmol/L (22-29); Chloride 95 mmol/L (98-107); Globulin 4.9 g/dL (1.3-4.6); Glucose 115 mg/dL (65-115); Lactic Sepsis W/Reflex 1.1 mmol/L (0.5-2.2); Osmolality Calculated 281 mOsm/kg (285-295); Potassium 3.5 mmol/L (3.5-5.1); Sodium 135 mmol/L (136-145); Total Bilirubin 0.3 mg/dL (0.15-1.2); Total Protein 8.8 g/dL (6.6-8.7)
[2020-11-03] MEDS: midazolam 1 mg/mL INJ 2 mL 3 MG IVP (16:40)
[2020-11-03] MEDS: vecuronium 10 mg SDV IVP (16:42)
--- NOTE | 2020-11-03 16:57 | XRR_ITS ---
PROCEDURE INFORMATION: Exam: XR Chest, 1 View Exam date and time: 11/03/2020 4:58 PM Age: 40 years old Clinical indication: Device placement; Ett placement (vent status); Additional info: Intubation TECHNIQUE: Imaging protocol: XR of the chest Views: 1 view. COMPARISON: CR XR chest 1V portable [id number] 12/01/2019 11:41 AM FINDINGS: Tubes, catheters and devices: Endotracheal tube is in satisfactory position with its tip approximately 3 cm above the nickolas. Nasogastric tube is looped in the stomach. The distal tip returns to the distal esophagus. Lungs: No focal infiltrate is identified. Pleural spaces: Unremarkable. No pleural effusion. No pneumothorax. Heart/Mediastinum: Heart is within normal limits of size. Bones/joints: Unremarkable. XR/XR chest 1V portable [id number] IMPRESSION: 1. Satisfactory position of endotracheal tube. 2. Nasogastric tube tip returns to the distal esophagus.
[2020-11-03] MEDS: oxymetazoline 0.05% Nasal Spray 15 mL 2 SPRAY NOSTRIL-B (17:01)
--- NOTE | 2020-11-03 17:01 | ANES.PROC ---
Anesthesia Procedures Procedure/Date: 11/03/20 Intubation: Time Out Performed: Yes Consent: requested by attending/covering physician, from patient (verbal consent obtained from patient) and risks and benefits reviewed Sedative (amount): versed (10 mg) Laryngoscope: fiber optic video scope ET Tube Size: 7 ET Tube Uncuffed: Yes Tube Secured Location: lips Tube Placement Confirmation: visualized tube passing through cords, equal breath sounds bilaterally and color change noted Patient Tolerated Procedure: no complications Intubation Complications: none Additional Comments: Called to ER urgently for assistance with awake intubation for peritonsillar abcess. Patient given glycopyrolate 0.4 mg IV, viscous lidocaine swish and gargle, and 2% nebulized lidocaine at 5 L min for [address] and view of vocal cords via fiberoptic scope obtained, topicalized vocal cords with lidocaine via port on scope. Scope advanced into trachea, ETT advanced over scope, and bilateral breath sounds, color change, and continued O2 sat 98% achieved. Patient given propofol sedation immediately thereafter and in stable condition.
[2020-11-03] MEDS: midazolam 1 mg/mL INJ 2 mL IVP (17:05)
[2020-11-03] MEDS: iohexol 300 mg/mL 100 mL Btl IV (17:27)
[2020-11-03] MEDS: vancomycin 1,000 MG in sodium chloride 0.9% 250 ML 250 MG IV (17:33)
[2020-11-03 17:44] LABS: SARS Covid-2 Antigen Negative (Negative)
[2020-11-03] MEDS: sodium chloride 0.9% 1,000 ML 150 ML IV (18:58)
--- NOTE | 2020-11-03 19:46 | PC.NURSE ---
Spoke with , received permission to transfer patient to [facility]
== END 2020-11-03 20:06 ==
PROVIDERS: Emergency Provider Family Medicine; PCP Family Medicine
DX: J36 Peritonsillar abscess (principal); J98.8 Other specified respiratory disorders
CPT/HCPCS: 12345; 31500; 51702; 70491; 71045; 80053; 83605; 85025; 87040; 87426; 94002; 94640; 94799; 96365; 96366; 96367; 96368; 96375; 99283; 99291; J1100; J2250; J2405; J2704; J3010; J3370; J3490; J7030; J7050; Q9967

== ENCOUNTER 2021-12-22 17:20 | Emergency (ER) | payer OTHER, SELFPAY ==
[2021-12-22 17:25] VITALS: BP 198/133; PULSE 104; RESP 18; TEMP 37; O2SAT 98; BMI 37.8
--- NOTE | 2021-12-22 17:33 | XRR_ITS ---
PROCEDURE INFORMATION: Exam: XR Chest Exam date and time: 12/22/2021 6:05 PM Age: 41 years old Clinical indication: Right-sided; Patient HX: C/O cough w new onset R upper chest pain; Additional info: Cough, chest pain TECHNIQUE: Imaging protocol: XR of the chest. Views: 1 view. COMPARISON: CR XR chest 1V portable [id number] 11/03/2020 4:43 PM FINDINGS: Lungs: No consolidation. Pleural spaces: No pleural effusion. No pneumothorax. Heart/Mediastinum: No cardiomegaly. Bones/joints: Unremarkable. XR/XR chest 1V portable [id number] IMPRESSION: No acute abnormality demonstrated.
--- NOTE | 2021-12-22 17:33 | ECG_ITS ---
[facility] Test Date: 2021-12-22 Pat Name: Naye Mace Department: Room: Gender: Female Strategy Consultant: : 1980 Requested By: Simone Ware Order Number: [id number] Li MD: Yan Sharma M.D. Measurements Intervals [place] Rate: 96 P: 26 DE: 177 QRS: 11 QRSD: 81 T: 48 QT: 329 QTc: 418 Interpretive Statements SINUS RHYTHM POSSIBLE RIGHT VENTRICULAR CONDUCTION DELAY [RSR (QR) IN V1/V2] Compared to ECG 12/10/2016 11:50:07 No significant changes Electronically Signed On 12-23-2021 9:00:49 CDT by Yan Sharma M.D. [id number]
--- NOTE | 2021-12-22 17:33 | ED_ITS ---
Documented by User: CARMEN Saenz 12/22/21 18:55 HPI - Chest Pain General: Chief Complaint: Chest Pain Stated Complaint: Chest Pain Time Seen by Provider: 12/22/21 17:33 History of Present Illness: 41-year-old female comes in today with complaints of right anterior chest wall pain. Patient reports that she has been ill for about a week with laryngitis and a cough. Today patient woke up and she had tenderness in her right anterior rib space which is worsened throughout the day. Patient exhibits pain with movement. Patient appears nontoxic. Patient appears in moderate pain. MD complaint: chest pain Onset (ago): hour(s) Prior episodes: No Pain location: right chest Pain radiation: none Severity: moderate Quality: sharp Relieving factors: rest Exacerbating factors: movement Associated symptoms: Deny abdominal pain or fever(s) Review of Systems General: Reports: 10 or more systems reviewed and unremarkable except in HPI and below Const: Denies: fever(s) ENMT: Reports: throat pain Card: Reports: chest pain Resp: Reports: non-productive cough GI: Denies: abdominal pain Musc: Reports: other (Left chest wall pain and tenderness) [facility] ED PFSH: Social History (Updated 08/29/21 @ 15:37 by Mar Salgado) Smoking and tobacco status: never smoked Second hand smoke exposure: No Alcohol intake: never Female Reproductive History: Date of last menstrual period: 03/06/20 Physical Exam Const: COMMON NORMALS: alert HENMT: COMMON NORMALS: atraumatic HEAD & SCALP: atraumatic Neck/C-Spine: COMMON NORMALS: full ROM Chest: CHEST: Yes tenderness (Right anterior chest wall) Resp: COMMON NORMALS: normal respiratory effort and clear to auscultation bilaterally AUSCULTATION: clear to auscultation bilaterally Cardio: COMMON NORMALS: regular rate and regular rhythm RATE: regular rate RHYTHM: regular rhythm GI: COMMON NORMALS: Soft to palpation and non-tender PALPATION: Yes Soft to palpation Extremity: COMMON NORMALS: normal to inspection and no pedal edema Neuro: SENSORIUM/ORIENTATION: Yes alert Psych: COMMON NORMALS: cooperative Course Vital Signs: Vital signs: Vital Signs Temperature 98.6 F 12/22/21 17:25 Pulse Rate 104 H 12/22/21 17:25 Respiratory Rate 18 12/22/21 17:25 Blood Pressure 198/133 03/27/22 17:25 Pulse Oximetry 98 12/22/21 17:25 MDM - Chest Pain Medical Decision Making Patient comes in today with complaints of right chest wall pain. On exam patient has some diminished lung sounds on auscultation of the lung aguayo. Patient does have chest wall tenderness on palpation of the left chest wall. Patient has increased pain with movement and deep inspiration. Abdomen soft nontender. No edema is noted in the extremities. Differential diagnosis includes pneumonia, pleurisy, costochondritis. Chest x-ray was normal. EKG was unremarkable. Patient was given 1 dose of hydrocodone, 10 mg of dexamethasone, and 30 mg of ketorolac. Patient had improvement in pain control. We will continue patient on anti-inflammatory naproxen, cover for bronchitis with doxycycline due to patient being ill with cough for the last 10 days, and provide a short course of hydrocodone for breakthrough pain. Patient reported understanding of plan. No sign of serious illness was noted. Discharge Plan Discharge Patient Disposition: Home Clinical Impression: Costalchondritis, Bronchitis Condition: Stable Prescriptions: New doxycycline monohydrate 100 mg capsule 100 mg PO BID 7 Days Qty: 14 0RF hydrocodone-acetaminophen 5-325 mg tablet 1 tab PO Q8H PRN (Reason: pain (scale score 7-10)) Qty: 7 0RF naproxen 500 mg tablet 500 mg PO BID Qty: 20 0RF Discontinued amoxicillin-pot clavulanate [Augmentin] 875-125 mg tablet 1 tab PO BID 10 Days Qty: 20 0RF No Action citalopram [Celexa] 40 mg Tablet 40 mg PO DAILY 0RF dextroamphetamine-amphetamine [Adderall XR] 15 mg Capsule,Extended Release 24hr 15 mg PO DAILY 0RF Discharge Orders: Discharge ED (Routine); Ordered 12/22/21 Ordered By: Simone Carrington Referrals: Tahir Evans MD [Primary Care Provider] - Discharge Diet: Usual diet Discharge Activity: Increase activity as tolerated Patient Instructions: Costochondritis (ED), Opioid Safety Activity Restrictions/Additional Instructions: Drink plenty of fluids. Take medications as directed. Take acetaminophen and naproxen to control pain. Naproxen will also help with the inflammation and you should take it twice a day routinely. Drink plenty of water with medication. Use hydrocodone as needed for severe pain. Activity as tolerated. Follow-up with primary care in 3 days for recheck. Return to ER for worsening symptoms such as high fever greater than 100.4, worsening shortness of breath, or new concerns. Stand Alone Forms: Work/School Release Coding Level of Care Code ED Caser for Chg Fwd Exam Comprehensive Documented by User: Husam Antunez, DO 12/22/21 18:57 HPI - Chest Pain General: Chief Complaint: Chest Pain Stated Complaint: Chest Pain Time Seen by Provider: 12/22/21 17:33 [facility] ED PFSH: Social History (Updated 08/29/21 @ 15:37 by Mar Salgado) Smoking and tobacco status: never smoked Second hand smoke exposure: No Alcohol intake: never Course Vital Signs: Vital signs: Vital Signs Temperature 98.6 F 12/22/21 17:25 Pulse Rate 104 H 12/22/21 17:25 Respiratory Rate 18 12/22/21 17:25 Blood Pressure 198/133 12/22/21 17:25 Pulse Oximetry 98 12/22/21 17:25 MDM - Chest Pain Medical Decision Making Patient comes in today with complaints of right chest wall pain. On exam patient has some diminished lung sounds on auscultation of the lung aguayo. Patient does have chest wall tenderness on palpation of the left chest wall. Patient has increased pain with movement and deep inspiration. Abdomen soft nontender. No edema is noted in the extremities. Differential diagnosis includes pneumonia, pleurisy, costochondritis. Chest x-ray was normal. EKG was unremarkable. Patient was given 1 dose of hydrocodone, 10 mg of dexamethasone, and 30 mg of ketorolac. Patient had improvement in pain control. We will continue patient on anti-inflammatory naproxen, cover for bronchitis with doxycycline due to patient being ill with cough for the last 10 days, and provide a short course of hydrocodone for breakthrough pain. Patient reported understanding of plan. No sign of serious illness was noted. This patient was originally seen by CARMEN Nye.? I agree with his history, evaluation, and treatment. Discharge Plan Discharge Patient Disposition: Home Clinical Impression: Costalchondritis, Bronchitis Condition: Stable Prescriptions: New doxycycline monohydrate 100 mg capsule 100 mg PO BID 7 Days Qty: 14 0RF hydrocodone-acetaminophen 5-325 mg tablet 1 tab PO Q8H PRN (Reason: pain (scale score 7-10)) Qty: 7 0RF naproxen 500 mg tablet 500 mg PO BID Qty: 20 0RF Discontinued amoxicillin-pot clavulanate [Augmentin] 875-125 mg tablet 1 tab PO BID 10 Days Qty: 20 0RF No Action citalopram [Celexa] 40 mg Tablet 40 mg PO DAILY 0RF dextroamphetamine-amphetamine [Adderall XR] 15 mg Capsule,Extended Release 24hr 15 mg PO DAILY 0RF Discharge Orders: Discharge ED (Routine); Ordered 12/22/21 Ordered By: Simone Carrington Referrals: Tahir Evans MD [Primary Care Provider] - Discharge Diet: Usual diet Discharge Activity: Increase activity as tolerated Patient Instructions: Costochondritis (ED), Opioid Safety Activity Restrictions/Additional Instructions: Drink plenty of fluids. Take medications as directed. Take acetaminophen and naproxen to control pain. Naproxen will also help with the inflammation and you should take it twice a day routinely. Drink plenty of water with medication. Use hydrocodone as needed for severe pain. Activity as tolerated. Follow-up with primary care in 3 days for recheck. Return to ER for worsening symptoms such as high fever greater than 100.4, worsening shortness of breath, or new concerns. Stand Alone Forms: Work/School Release Coding Level of Care Code ED Caser for Gonzalezg Fwd Exam Comprehensive
[2021-12-22] MEDS: HYDROcodone-acetaminophen 10-325 mg Tablet 1 TAB PO (18:05)
[2021-12-22] MEDS: ketorolac 30 mg/mL INJ IM (18:05)
[2021-12-22] MEDS: dexamethasone 10 mg/mL INJ IM (18:05)
[2021-12-22 19:12] VITALS: BP 185/98; PULSE 83; RESP 18; O2SAT 99
== END 2021-12-22 19:13 | disposition home or self-care (01) ==
PROVIDERS: Emergency Provider Nurse Practitioner Family; PCP Family Medicine
DX: M94.0 Chondrocostal junction syndrome [Tietze] (principal); J40 Bronchitis, not specified as acute or chronic
CPT/HCPCS: 71045; 93005; 96372; 99283; J1100; J1885

== ENCOUNTER 2022-05-11 13:03 | Emergency (ER) | payer OTHER, SELFPAY ==
[2022-05-11 13:09] VITALS: BP 168/84; PULSE 94; RESP 16; TEMP 36.6; O2SAT 97; BMI 37.8
--- NOTE | 2022-05-11 13:14 | ECG_ITS ---
[facility] Test Date: 2022-05-11 Pat Name: Naye Mace Department: Room: Gender: Female Traveling Sales Executive: : 1980 Requested By: Louis Guerin Order Number: [id number] Li MD: Yan Sharma M.D. Measurements Intervals Dwight Rate: 83 P: 32 SC: 176 QRS: 19 QRSD: 81 T: 76 QT: 356 QTc: 420 Interpretive Statements SINUS RHYTHM NONSPECIFIC T-WAVE ABNORMALITY Compared to ECG 12/22/2021 18:42:18 T-wave abnormality now present Electronically Signed On 05-12-2022 17:40:24 CDT by Yan Sharma M.D. [id number] f
--- NOTE | 2022-05-11 14:34 | XRR_ITS ---
PROCEDURE INFORMATION: Exam: XR Chest Exam date and time: 05/11/2022 2:46 PM Age: 41 years old Clinical indication: Cough and dyspnea; Additional info: Dyspnea/cough TECHNIQUE: Imaging protocol: Radiologic exam of the chest. Views: 1 view. COMPARISON: CR XR chest 1V portable [id number] 12/22/2021 6:05 PM FINDINGS: Lungs: The lung bases are suboptimally assessed due to technique however the upper lungs are clear of focal consolidation. Pleural spaces: Unremarkable. No pleural effusion. No pneumothorax. Heart/Mediastinum: Cardiac silhouette appears normal in size. No obvious vascular congestion. Bones/joints: No acute osseous findings. Other findings: Single view was submitted. XR/XR chest 1V portable [id number] IMPRESSION: No obvious acute consolidation. Suboptimal lung base assessment. Followup including lateral view may be obtained if clinically indicated.
--- NOTE | 2022-05-11 14:35 | W.ED.WEAKNES ---
HPI - Weakness General: Chief complaint: Weakness Stated complaint: dizzy; h/a; nausea Time Seen by Provider: 05/11/22 14:03 Source: patient Mode of arrival: ambulatory History of Present Illness: 41-year-old female presents emergency room with dizziness headache nausea generalized weakness worse over the last 3 days has a history of anemia recently had another abnormally heavy. She getting dyspnea with exertion. Some chest discomfort that is nonradiating she had some diarrhea initially but that resolved. MD Complaint: generalized weakness Onset (ago): day(s) (3) Duration: constant Location: generalized Severity: mild Relieving factors: none Exacerbating factors: none Associated symptoms: Reports nausea; Denies chest pain, chills, confusion, melena, decreased appetite, diaphoresis, dysuria, easy bruising, fever(s), headache(s), myalgias, rash, short of breath, syncope or vomiting Review of Systems Const: Denies: fever(s), chills, fatigue, malaise or diaphoresis ENMT: Denies: throat pain, ear or mastoid pain, nasal discharge or nasal congestion Card: Denies: chest pain, palpitations or syncope Resp: Denies: dyspnea, productive cough or non-productive cough GI: Reports: nausea; Denies: abdominal pain, vomiting or melena : Denies: flank pain, difficulty voiding, dysuria, urinary frequency or urinary urgency Skin/Breast: Denies: rash or pruritus Neuro: Denies: headache(s) or confusion Adilson/Lymph: Denies: easy bruising PFSH ED PFSH: Medical History (Updated 05/11/22 @ 16:15 by Louis Abernathy DO) Depression Menorrhagia Social History Smoking and tobacco status: never smoked Second hand smoke exposure: No Alcohol intake: never Female Reproductive History: Date of last menstrual period: 05/10/22 Physical Exam Const: GENERAL APPEARANCE: cooperative and comfortable ORIENTATION/CONSCIOUSNESS: Yes awake, Yes oriented to person, Yes oriented to place and Yes oriented to time HENMT: COMMON NORMALS: normocephalic and atraumatic HEAD & SCALP: normocephalic and atraumatic Resp: COMMON NORMALS: normal respiratory effort, No retractions, No use of accessory muscles and clear to auscultation bilaterally AUSCULTATION: clear to auscultation bilaterally Cardio: COMMON NORMALS: regular rate, regular rhythm and No murmurs present (Cardio) RATE: regular rate RHYTHM: regular rhythm GI: COMMON NORMALS: Soft to palpation and No hepatosplenomegaly present AUSCULTATION: Yes normoactive bowel sounds PALPATION: Yes Soft to palpation, No Tenderness to palpation present (GI), No Guarding due to palpation present (GI) and Yes No hepatosplenomegaly present Extremity: COMMON NORMALS: normal to inspection, capillary refill normal, no clubbing, cyanosis or edema, no calf tenderness and no pedal edema Neuro: SENSORIUM/ORIENTATION: Yes oriented to person, Yes oriented to place and Yes oriented to time Skin: COMMON NORMALS: no rashes or lesions noted GENERAL SKIN EXAM: no rashes or lesions noted Course Vital Signs: Vital signs: Vital Signs Temperature 97.9 F 05/11/22 13:09 Pulse Rate 94 05/11/22 13:09 Respiratory Rate 16 05/11/22 13:09 Blood Pressure 168/84 05/11/22 13:09 Pulse Oximetry 97 05/11/22 13:09 MDM - Weakness Medical Decision Making Labs and imaging EKG reviewed. Patient currently is resting comfortably she did not look that she will benefit from any fluids given her blood pressure and laboratory studies. COVID test is pending we will discharge her home we will follow-up with results if symptoms worsen follow-up with her primary care doctor. Medical Records I reviewed the patient's medical records. Lab Data I reviewed the patient's lab results. : 05/11/22 14:30 05/11/22 14:30 Radiology Impressions Chest X-Ray 05/11/22 14:34 IMPRESSION: No obvious acute consolidation. Suboptimal lung base assessment. Followup including lateral view may be obtained if clinically indicated. Laboratory Results WBC 8.1 10^3/uL (4.0-10.0) 05/11/22 14:30 RBC 5.03 10^6/uL (4.1-5.3) 05/11/22 14:30 Hgb 13.6 g/dL (11.5-15.3) 05/11/22 14:30 Hct 42.6 % (37.0-47.0) 05/11/22 14:30 MCV 84.7 fl (81-99) 05/11/22 14: MCH 27.0 pg (28.0-34.0) L 05/11/22 14: MCHC 31.9 g/dL (30.0-36.0) 05/11/22 14: RDW 14.7 % (12.1-15.1) 05/11/22 14:30 Plt Count 555 10^3/cmm (130-400) H 05/11/22 14: MPV 8.5 fL (7.4-10.4) 05/11/22 14:30 Neut % (Auto) 69.2 % 05/11/22 14:30 Lymph % (Auto) 21.8 % 05/11/22 14: [place] % (Auto) 6.7 % 05/11/22 14: Eos % (Auto) 1.5 % 05/11/22 14: Baso % (Auto) 0.7 % 05/11/22 14: Neut # (Auto) 5.62 10^3/uL (1.8-7.7) 05/11/22 14:30 Lymph # (Auto) 1.8 10^3/uL (0.8-4.8) 05/11/22 14:30 [place] # (Auto) 0.5 10^3/uL (0.2-0.9) 05/11/22 14:30 Eos # (Auto) 0.1 10^3/uL (0.0-0.8) 05/11/22 14: Baso # (Auto) 0.1 10^3/uL (0.0-0.1) 05/11/22: Nucleated RBC % (auto) 0 % 05/11/22 14: Nucleated RBCs # 0.0 /100WBC 05/11/22 14:30 Sodium 136 mmol/L (136-145) 05/11/22 14:30 Potassium 4.0 mmol/L (3.5-5.1) 05/11/22 14:30 Chloride 98 mmol/L (98-107) 05/11/22 14: Carbon Dioxide 27 mmol/L (22-29) 05/11/22 14:30 Anion Gap 15.0 (5-19) 05/11/22 14:30 BUN 10 mg/dL (6-20) 05/11/22 14:30 Creatinine 0.5 mg/dL (0.5-0.9) 05/11/22 14:30 GFR Calculation 135.3 mL/min (90-130) H 05/11/22 14:30 Glucose 108 mg/dL (65-115) 05/11/22 14:30 Calculated Osmolality 282 mOsm/kg (285-295) L 05/11/22 14:30 Calcium 9.3 mg/dL (8.5-10.5) 05/11/22 14:30 Total Bilirubin 0.3 mg/dL (0.15-1.2) 05/11/22 14:30 AST 16 U/L (0-32) 05/11/22 14:30 ALT 20 U/L (0-33) 05/11/22 14:30 Alkaline Phosphatase 100 IU/L (35-105) 05/11/22 14:30 Total Protein 7.6 g/dL (6.6-8.7) 05/11/22 14:30 Albumin 4.1 g/dL (3.5-5.2) 05/11/22 14:30 Globulin 3.5 g/dL (1.3-4.6) 05/11/22 14:30 Discharge Plan Discharge Patient Disposition: Home Clinical Impression: Menorrhagia, Suspected COVID-19 virus infection Condition: Stable Prescriptions: No Action citalopram [Celexa] 40 mg Tablet 40 mg PO DAILY dextroamphetamine-amphetamine [Adderall XR] 15 mg Capsule,Extended Release 24hr 15 mg PO DAILY hydrocodone-acetaminophen 5-325 mg tablet 1 tab PO Q8H PRN (Reason: pain (scale score 7-10)) Qty: 7 0RF propranolol 20 mg tablet 20 mg PO BID naproxen 500 mg tablet 500 mg PO BID PRN (Reason: Pain) Discharge Orders: Discharge ED (Routine); Ordered 05/11/22 Ordered By: Louis Abernathy Referrals: Tahir Evans MD [Primary Care Provider] - Discharge Diet: Usual diet Discharge Activity: Increase activity as tolerated Patient Instructions: Opioid Safety Activity Restrictions/Additional Instructions: Tested for COVID today. Recommend you maintain self quarantine to the results return. We will contact you with those. Recommend ibuprofen or acetaminophen for relief of symptoms. Follow-up with your primary care doctor if not improving. Coding Level of Care Code ED Modeling Instructor for Chg Fwd Exam Detailed
[2022-05-11 14:48] LABS: Basophils # 0.1 10^3/uL (0.0-0.1); Basophils % 0.7 %; Eosinophils # 0.1 10^3/uL (0.0-0.8); Eosinophils % 1.5 %; Hematocrit 42.6 % (37.0-47.0); Hemoglobin 13.6 g/dL (11.5-15.3); Lymphocytes # 1.8 10^3/uL (0.8-4.8); Lymphocytes % 21.8 %; Mean Corpuscular HGB Conc 31.9 g/dL (30.0-36.0); Mean Corpuscular Volume 84.7 fl (81-99); Mean Platelet Volume 8.5 fL (7.4-10.4); Monocytes # 0.5 10^3/uL (0.2-0.9); Monocytes % 6.7 %; Neutrophils # 5.62 10^3/uL (1.8-7.7); Neutrophils % 69.2 %; Nucleated Red Blood Cells % 0 %; Platelet Count 555 10^3/cmm (130-400); Red Blood Count 5.03 10^6/uL (4.1-5.3); Red Cell Distribution Width 14.7 % (12.1-15.1); White Blood Count 8.1 10^3/uL (4.0-10.0)
[2022-05-11 15:00] LABS: Alanine Aminotransferase 20 U/L (0-33); Albumin Level 4.1 g/dL (3.5-5.2); Alkaline Phosphatase 100 IU/L (35-105); Aspartate Amino Transferase 16 U/L (0-32); Blood Urea Nitrogen 10 mg/dL (6-20); Calcium 9.3 mg/dL (8.5-10.5); Carbon Dioxide 27 mmol/L (22-29); Chloride 98 mmol/L (98-107); Globulin 3.5 g/dL (1.3-4.6); Glomerular Filtration Rate 135.3 mL/min (90-130); Glucose 108 mg/dL (65-115); Osmolality Calculated 282 mOsm/kg (285-295); Sodium 136 mmol/L (136-145); Total Bilirubin 0.3 mg/dL (0.15-1.2); Total Protein 7.6 g/dL (6.6-8.7)
[2022-05-11 16:31] VITALS: BP 189/98; PULSE 88; RESP 21; O2SAT 98
[2022-05-11 17:20] LABS: Adenovirus Not Detected (NOT DETECT); Chlamydia Pneumoniae Not Detected (NOT DETECT); Coronavirus 229E,HKU1,NL63,OC4 Not Detected (NOT DETECT); Human Metapneumovirus Not Detected (NOT DETECT); Human Rhinovirus/Enterovirus Not Detected (NOT DETECT); Influenza A Not Detected (NOT DETECT); Influenza A H1 Not Detected (NOT DETECT); Influenza A H1-2009 Not Detected (NOT DETECT); Influenza A H3 Not Detected (NOT DETECT); Influenza B Not Detected (NOT DETECT); Mycoplasma Pneumoniae Not Detected (NOT DETECT); Parainfluenza Virus Type 1 Not Detected (NOT DETECT); Parainfluenza Virus Type 2 Not Detected (NOT DETECT); Parainfluenza Virus Type 3 Not Detected (NOT DETECT); Parainfluenza Virus Type 4 Not Detected (NOT DETECT); Respiratory Syncytial Virus A Not Detected (NOT DETECT); Respiratory Syncytial Virus B Not Detected (NOT DETECT); SARS-COV-2 Not Detected (NOT DETECT)
== END 2022-05-11 16:32 | disposition home or self-care (01) ==
PROVIDERS: Emergency Provider Family Medicine; PCP Family Medicine
DX: Z20.822 Contact with and (suspected) exposure to COVID-19 (principal); N92.0 Excessive and frequent menstruation with regular cycle
CPT/HCPCS: 71045; 80053; 85025; 87635; 93005; 99285

== ENCOUNTER 2022-08-15 13:03 | Emergency (ER) | payer OTHER, SELFPAY ==
[2022-08-15 13:14] VITALS: BP 99/50; PULSE 90; RESP 12; TEMP 36.8; O2SAT 98; BMI 41.6
--- NOTE | 2022-08-15 13:20 | W.ED.EXTPRO ---
HPI - Extremity Problem General: Chief complaint: Extremity Injury, Lower Stated complaint: Right knee injury Time Seen by Provider: 08/15/22 13:19 History of Present Illness: Ms. Mace is a 41-year-old lady presenting to the emergency department due to knee injury. She reports history of knee pain however was stepping down a step at her house and had sudden onset of severe pain in the anterior medial aspect of her knee. No distal CMS changes. Denies twisting or abnormal step. Has tried home medications without significant relief. Intensity is moderate to severe. Course has worsened. Previously referred for outpatient MRI due to history of meniscus tear type feeling however has not yet been scheduled. No other specific changes in health, exacerbating, or alleviating factors identified. Pain Consistency: constant Location: knee Severity scale (1-10): 7 Quality: aching and sharp Relieving factors: nothing Exacerbating factors: range of motion, weight bearing and walking Associated symptoms: Reports no associated symptoms Review of Systems General: Reports: 10 or more systems reviewed and unremarkable except in HPI and below PFSH ED PFSH: Medical History Depression Menorrhagia Social History Smoking and tobacco status: never smoked Second hand smoke exposure: No Alcohol intake: never Female Reproductive History: Date of last menstrual period: 05/10/22 Physical Exam Const: COMMON NORMALS: alert GENERAL APPEARANCE: cooperative and well developed HENMT: COMMON NORMALS: normocephalic and atraumatic HEAD & SCALP: normocephalic and atraumatic Eye: COMMON NORMALS: conjunctivae normal CONJUNCTIVA: Yes conjunctivae normal SCLERA: sclerae normal Neck/C-Spine: COMMON NORMALS: supple GENERAL: Yes trachea midline Resp: COMMON NORMALS: normal respiratory effort EFFORT & INSPECTION: Yes able to speak in complete sentences Cardio: COMMON NORMALS: regular rate and regular rhythm RATE: regular rate RHYTHM: regular rhythm GI: COMMON NORMALS: Soft to palpation PALPATION: Yes Soft to palpation and No Tenderness to palpation present (GI) PERCUSSION: normal to percussion Extremity: NARRATIVE EXTREMITY EXAM: Generalized tenderness palpation of right knee worse along the medial joint line. Distal CMS intact. Extensor mechanism intact. GENERAL: Yes normal exam except as noted and No edema Neuro: COMMON NORMALS: moves all extremities SENSORIUM/ORIENTATION: Yes alert and No Orientation impaired Psych: COMMON NORMALS: mental status grossly normal and Normal thought process present THOUGHT PROCESS: Normal thought process present Course Vital Signs: Vital signs: Vital Signs Temperature 98.2 F 08/15/22 13:14 Pulse Rate 90 08/15/22 13:14 Respiratory Rate 12 08/15/22 13:14 Blood Pressure 99/50 08/15/22 13:14 Pulse Oximetry 98 08/15/22 13:14 Oxygen Delivery Me thod 08/15/22 13:14 MDM - Extremity (Nontraumatic) Medical Decision Making 41-year-old lady presenting with acute on chronic knee issue. Exam as above. Given clinical history indication for laboratory studies at this time. X-ray negative for acute pathology however given degree of patient's symptoms and mechanism CT is warranted for evaluation of occult fracture. Negative CT for fracture however patient does have what appears to be meniscal pathology. Patient mildly improved with morphine and Toradol. Most likely etiology of patient's symptoms is multifactorial including acute exacerbation of of meniscal injury. The results of ED evaluation were discussed with the patient including prescriptions and/or symptomatic cares (if applicable) including appropriate and responsible use, followup plan, and return precautions. The patient verbalized understanding and felt safe for discharge. Medical Records I reviewed the patient's medical records. Lab Data I reviewed the patient's lab results. Radiology Impressions Knee X-Ray 08/15/22 13:24 IMPRESSION: 1. Negative right knee. Knee CT 08/15/22 14:17 IMPRESSION: 1. No acute bony injury identified. 2. Medial meniscal medial extrusion. MRI may add additional useful information. 3. Small knee joint effusion. Discharge Plan Discharge Patient Disposition: Home Clinical Impression: Knee pain, Meniscus, medial, derangement Condition: Stable Prescriptions: New oxycodone 5 mg tablet 5 mg PO Q4H PRN (Reason: pain) Qty: 20 0RF No Action citalopram [Celexa] 40 mg Tablet 40 mg PO DAILY dextroamphetamine-amphetamine [Adderall XR] 15 mg Capsule,Extended Release 24hr 15 mg PO DAILY hydrocodone-acetaminophen 5-325 mg tablet 1 tab PO Q8H PRN (Reason: pain (scale score 7-10)) Qty: 7 0RF propranolol 20 mg tablet 20 mg PO BID naproxen 500 mg tablet 500 mg PO BID PRN (Reason: Pain) Discharge Orders: Discharge ED (Routine); Ordered 08/15/22 Ordered By: Adrián Renner Referrals: Tahir Evans MD [Primary Care Provider] - Discharge Diet: Usual diet Discharge Activity: Increase activity as tolerated Patient Instructions: Knee Pain (ED), Opioid Safety, Pain Management Activity Restrictions/Additional Instructions: Thank you for visiting the emergency department. You were seen evaluated for knee pain. The exact cause of your symptoms is unclear though may be related to abnormal appearance of the medial meniscus and bruising. I will message case management for follow-up with orthopedics. You may use [id number] medications such as acetaminophen and ibuprofen for pain however please do not exceed the daily recommended dosage as listed on the packaging and please keep in mind that many namebrand medications contain the same active ingredients. I will also prescribe oxycodone. Use this cautiously as discussed. Return to the emergency department for uncontrolled symptoms or anything else that you are concerned about a feel needs emergency department evaluation. Coding Level of Care Code ED Basket Machine Operator for Kristin Garces
--- NOTE | 2022-08-15 13:24 | XR_ITS ---
WS: [id number] Exam: XR knee RT 3V* [id number] Date/Time of Exam: 08/15/2022 1:24 PM Reason For Exam: anteriomedial pain, sudden pain after step Comparison 07/30/2022. No fracture or dislocation. Joint compartments are well-maintained. No joint effusion. XR/XR knee RT 3V* [id number] IMPRESSION: 1. Negative right knee.
[2022-08-15] MEDS: ketorolac 30 mg/mL INJ IM (13:53)
[2022-08-15] MEDS: morphine 4 mg/mL SDV 1 mL IM (13:54)
--- NOTE | 2022-08-15 14:17 | CTR_ITS ---
PROCEDURE INFORMATION: Exam: CT Right Lower Extremity Without Contrast, Knee Exam date and time: 08/15/2022 2:22 PM Age: 41 years old Clinical indication: Injury or trauma; Fall; Swelling (edema); Knee; Right; Injury date: 08/14/2022; Additional info: Severe pain started stepping down stairs, unable to ambulate TECHNIQUE: Imaging protocol: CT of the Right lower extremity without contrast was performed. Exam focused on the knee. Radiation optimization: All CT scans at this facility use at least one of these dose optimization techniques: automated exposure control; mA and/or kV adjustment per patient size (includes targeted exams where dose is matched to clinical indication); or iterative reconstruction. COMPARISON: CR XR knee RT 3V* [id number] 08/15/2022 1:27 PM RADIATION DOSE METRICS: Total DLP (mGy-cm): 343.43 FINDINGS: Bones/joints: No acute bony abnormality identified. Medial meniscal medial extrusion appears be present (series 6, image 42). Small knee joint effusion. Soft tissues: Inferior prepatellar and upper pretibial mild soft tissue edema. CT/CT knee RT wo con* [id number] IMPRESSION: 1. No acute bony injury identified. 2. Medial meniscal medial extrusion. MRI may add additional useful information. 3. Small knee joint effusion.
--- NOTE | 2022-08-18 11:52 | DCPLANNER ---
Addendum entered by Priscila Clifford 08/21/22 09:24: geothermal production manager received the following message from the ortho clinic regarding follow up appointment: Attempted to contact patient, left voicemail and mailed letter. Original Note: geothermal production manager had message to schedule a follow up appointment for patient with ortho. geothermal production manager sent patients information to the front office staff at ortho. Patients information will be printed and reviewed. Clinic will call patient with appointment information.
== END 2022-08-15 15:47 | disposition home or self-care (01) ==
PROVIDERS: Emergency Provider Emergency Medicine; PCP Family Medicine
DX: M23.303 Other meniscus derangements, unspecified medial meniscus, right knee (principal)
CPT/HCPCS: 73562; 73700; 96372; 99284; J1885; J2270

== ENCOUNTER 2022-10-21 06:58 | Outpatient (CLI) | payer OTHER, SELFPAY ==
--- NOTE | 2022-10-21 07:15 | MR_ITS ---
WS: [id number] MRI RIGHT KNEE HISTORY: Medial knee pain. Progressive for 4 months. No injury. COMPARISON: Radiograph 08/15/2022 Anterior cruciate ligament: Anterior cruciate ligament is under tension due to hyperextension of the knee within the coil. There is increased signal within the ACL. No full-thickness tear. Posterior cruciate ligament: Intact. Medial collateral ligament: Fluid on both sides of the MCL. Abnormal signal and discontinuity of port ions of the MCL consistent with at least a partial tear. Posterior lateral corner structures: Intact. Medial menisci: Abnormal signal throughout a large portion of the posterior horn. Abnormal signal pos terior to the meniscus suggesting meniscal capsular separation. Fraying along the superior and inferi or surfaces of the posterior meniscus with an additional tear laterally towards the body. Anterior ho rn is slightly subluxed but normal otherwise. Lateral meniscus: Intact. Normal signal, size and shape. Extensor mechanism: Distal quadriceps tendon and patellar tendons are intact. Fluid and soft tissue: Small joint effusion. There is a small amount of edema also surrounding the kn ee greatest along the medial compartment. No Monzon's cyst. Osseous and articular structures: Patellofemoral compartment: Normal. Medial compartment: Mild narrowing of the medial compartment. Fraying involving the surfaces of the c artilage. Lateral compartment: Negative. Lobulated 14 x 11 mm central bone lesion in the femoral metaphysis. No significant edema. Most consis tent with a benign enchondroma. Mild infrapatellar fat pad edema. There is a well-circumscribed fluid collection measuring 7 x 5 mm e xtending into the infrapatellar fat pad adjacent to the distal ACL. MR/MR knee RT wo con* [id number] IMPRESSION: 1. Complex tear with partial extrusion involving the posterior horn medial men iscus and highly suspicious for meniscocapsular separation. 2. Moderate sprain MCL. 3. Small joint effusion. 4. Mild narrowing medial compartment with fraying along the surfaces of the ca rtilage. 5. Enchondroma femoral metaphysis. 6. Infrapatellar fat pad edema with a small 7 x 5 mm cyst which may be a gangl ion protruding from the ACL.
== END 2022-10-21 06:59 | disposition home or self-care (01) ==
LOC: RAD 07:01
PROVIDERS: PCP Family Medicine; Visit Provider Orthopaedic Surgery
DX: M25.461 Effusion, right knee; S83.241A Other tear of medial meniscus, current injury, right knee, initial encounter; S83.411A Sprain of medial collateral ligament of right knee, initial encounter; X58.XXXA Exposure to other specified factors, initial encounter; R60.0 Localized edema
CPT/HCPCS: 73721

== ENCOUNTER → 2022-11-10 07:30 | Outpatient (BNVA) | payer OTHER, SELFPAY | PROVIDERS: PCP Family Medicine; Visit Provider Nurse Practitioner Family | DX: H10.9 Unspecified conjunctivitis (principal); Z11.3 Encounter for screening for infections with a predominantly sexual mode of transmission | CPT/HCPCS: 87491; 87591; 87661 ==

== ENCOUNTER 2022-12-04 05:45 | Day surgery (SDC) | payer OTHER, SELFPAY ==
[2022-12-03 09:26] VITALS: BMI 40.7
[2022-12-04] VITALS (13 sets, daily range): BP systolic 102–153; BP diastolic 60–111; PULSE 67–95; RESP 13–21; TEMP 36.3–36.8; O2SAT 91–99
[2022-12-04 06:08] LABS: OR HCG Qualitative Urine Negative (Negative)
[2022-12-04] MEDS: sodium chloride 0.9% 1,000 ML 30 ML IV (06:14)
[2022-12-04] MEDS: acetaminophen 500 mg Tablet 1000 MG PO (06:15)
[2022-12-04] MEDS: CELEcoxib 200 mg Capsule 400 MG PO (06:16)
--- NOTE | 2022-12-04 06:42 | ANES.PREANE2 ---
Pre-Anesthetic Assessment Height/Weight: Height 1.6 m Weight 104.326 kg Temp Pulse Resp BP Pulse Ox O2 Del Method 98.2 F 95 16 153/111 97 12/04/22 06:02 12/04/22 06:02 12/04/22 06:02 12/04/22 06:02 12/04/22 06:02 12/04/22 06:02 Preop Diagnosis: Right medial meniscal tear Operation Date: 12/04/22 07:00 Proposed Procedures p right knee arthroscopy with medial meniscectomy/ [id number],S83.241A(Right) - Kumar Islas MD s Meniscectomy(Right) - Kumar Islas MD Familial anesthetic complications: None Was Beta Mattie taken within 24 hours: N/A Was Clonidine taken within 24 hours: N/A Last intake: Intake Last Liquid Date 12/04/22 Last Liquid Time 05:00 Last Solid Date 12/03/22 Last Solid Time 21:30 Social No alcohol and No tobacco Exam alert, oriented x 3, clear to auscultation bilaterally and regular rate & rhythm Airway Mallampati: Class II Dentition: partials Metabolic Morbid Obesity Neuropsych Depression Anesthetic Plan ASA status: 2 Anesthesia: General Risk of > 500 ml blood loss (7ml/kg in children): No Medications/Allergies Home Medications Medication Instructions Recorded Confirmed Last Taken Type citalopram 40 mg tablet (Celexa) 40 mg PO DAILY 12/01/19 12/04/22 12/04/22 History propranolol 20 mg tablet 20 mg PO BID 05/11/22 12/04/22 12/04/22 History tramadol 50 mg tablet 50 mg PO Q6H PRN pain 7 days #30 12/01/22 12/04/22 12/04/22 Rx tabs Allergies Allergy/AdvReac Type Severity Reaction Status Date / Time promethazine [From Phenergan] Allergy ADR-Hyperte Verified 11/10/22 07:11 nsion Current Medications Generic Name Dose Route Start Last Admin Trade Name Freq PRN Reason Stop Dose Admin Sodium Chloride 1,000 mls @ 30 mls/hr 12/04/22 06:00 12/04/22 06:14 Sodium Chloride 0.9% IV 12/05/22 05:59 30 mls/hr .Q24H KARLA Administration PFSH Anesthesia Medical History (Updated 10/29/22 @ 14:52 by Kumar Islas MD) Depression Menorrhagia Social History (Updated 11/10/22 @ 07:14 by Mar Salgado) Smoking and tobacco status: never smoked Second hand smoke exposure: No Alcohol intake: never Female Reproductive History Date of last menstrual period: 10/29/22 Data Anesthesia Cardiac Studies: No Data to Display
--- NOTE | 2022-12-04 07:01 | W.PM.OPSFHP ---
Same Day Surgery H&P Indication for Procedure/HPI DATE OF PROCEDURE: December 04, 2022 CHIEF COMPLAINT/INDICATIONFOR SURGICAL PROCEDURE: Right knee pain. For medial meniscectomy PREOP DIAGNOSIS: Right medial meniscal tear PLANNED PROCEDURE: Operation Date: 12/04/22 07:00 Proposed Procedures p right knee arthroscopy with medial meniscectomy/ [id number],S83.241A(Right) - Kumar Islas MD s Meniscectomy(Right) - Kumar Islas MD 41 year old female here for follow up of knee pain that began 6 months ago.? She reports in July that she stepped off her porch and fell and felt a pop in the knee with increasing pain.? She has persistent discomfort in the posterior medial aspect the knee worse with walking and standing.? She has tried Tylenol ibuprofen and Ultram without relief.?? Medications/Allergies* Home Medications Medication Instructions Recorded Confirmed Type citalopram 40 mg tablet (Celexa) 40 mg PO DAILY 12/01/19 12/04/22 History propranolol 20 mg tablet 20 mg PO BID 05/11/22 12/04/22 History Allergies/Adverse Reactions Allergy/AdvReac Type Severity Reaction Status Date / Time promethazine [From Phenergan] Allergy ADR-Hyperte Verified 11/10/22 07:11 nsion Current Medications: Generic Name Dose Route Start Last Admin Trade Name Freq PRN Reason Stop Dose Admin Sodium Chloride 1,000 mls @ 30 mls/hr 12/04/22 06:00 12/04/22 06:14 Sodium Chloride 0.9% IV 12/05/22 05:59 30 mls/hr .Q24H KARLA Administration Pertinent History/Comorbid Conditions* Medical History (Updated 10/29/22 @ 14:52 by Kumar Islas MD) Depression Menorrhagia Social History Smoking and tobacco status: never smoked Second hand smoke exposure: No Alcohol intake: never Pertinent Exam Findings alert, oriented x 3, clear to auscultation bilaterally and regular rate & rhythm KNEE right Tenderness medial joint line Moderate effusion RANGE OF MOTION: ? ? ? EXAMINED LIMB ? Extention: Full ? Flexion: 120 ? Severe pain with extremes of motion Patella tracks well.? No apprehension with medial or lateral displacement of the patella Patient collateral ligaments are stable Recommendations Surgery/Procedure today Coding Level of Care Code Acute Code for Chg Fwd
[2022-12-04] MEDS: ceFAZolin 2,000 MG in sodium chloride 0.9% (plus) 50 ML 100 MG IV (07:08)
[2022-12-04] MEDS: morphine 4 mg/mL SDV 1 mL 8 MG XX (07:34)
--- NOTE | 2022-12-04 07:52 | PM.OP ---
Operative Report Date of procedure: December 04, 2022 Pre-op diagnosis: Preop Diagnosis Right medial meniscal tear Post-op diagnosis: same Post-op diagnosis: Complex tear right medial meniscus, chondromalacia medial femoral condyle Procedure done: Right medial meniscectomy, chondroplasty medial femoral condyle Pathology: none sent Anesthesia: General Estimated blood loss (mL): 5 Findings: The patient had a complex tear of the medial third posterior middle thirds involving approximately the central 60%. She had fibrillation and and flaps over the weightbearing aspect the medial femoral condyle involving approximately 50% of the thickness of cartilage but no exposed subchondral bone. The cruciate ligaments were healthy. The articular cartilage of the patellofemoral and lateral compartment were healthy and the lateral meniscus was healthy Condition: stable Disposition: PACU Brief History: The patient is a 41-year-old with a 8-month history of pain in her right knee that began when she stepped off her porch twisting it with immediate pain. An MRI showed a medial meniscal tear. Procedure: The patient was taken to the operating room and given a general anesthesia. She was given 2 g of Ancef. A timeout was performed. The knee was infiltrated with 30 cc of 0.5% Marcaine and 8 mg of morphine. The leg was prepped and draped the usual fashion The knee was entered through a standard inferior medial and inferior lateral portal. The medial meniscal tear and chondromalacia was identified and found to be the only abnormal finding. Initial attention was paid to the medial meniscus. Utilizing incisor shaver unstable flaps of medial meniscus were debrided in a radial tear between the middle and posterior third was debrided back to a stable rim. This involved removal approximately 60% of the meniscus. The rim was cleaned up with the [employer]rewolf probe leaving approximately 30% of the posterior and middle third of the meniscus remaining. Attention was then focused on the medial femoral condyle. Utilizing the [employer] Werewolf probe unstable flaps and fissures were debrided back. At the remainder of the debridement the cartilage was thinned but no exposed subchondral bone identified. The scope was then directed to the lateral portal with no abnormal findings identified. The patellofemoral joint was inspected and found to be free of degenerative change. The scope was driven back into the posterior medial and posterior lateral knee joints to the notch again with no abnormal findings noted. The knee was irrigated with saline. Portals were closed with 3-0 Prolene. Sterile dressings were applied. The patient was extubated and taken to recovery in stable condition.
[2022-12-04] MEDS: fentaNYL 50 mcg/mL INJ 2mL IVP (08:12)
[2022-12-04] MEDS: HYDROcodone-acetaminophen 5-325 mg Tablet 1 TAB PO (08:39)
--- NOTE | 2022-12-04 14:08 | ANE.PACU2 ---
Inpatient post-anesthesia follow up: Airway intact: Yes Vital signs: Temperature 97.3 F Pulse Rate 70 Respiratory Rate 15 Blood Pressure 113/67 Pulse Oximetry 99 Oxygen Delivery Me thod Room Air Oxygen Flow Rate Fraction of Inspir ed Oxygen Hydration adequate: Yes Nausea and vomiting: No Pain level: 1 Mental status: Baseline
== END 2022-12-04 09:20 | disposition home or self-care (01) ==
PROVIDERS: PCP Family Medicine; Visit Provider Orthopaedic Surgery
PROC: (CPT 29870; principal; 2022-12-04 07:00)
PROC: (CPT 29881; 2022-12-04 07:00)
DX: S83.231A Complex tear of medial meniscus, current injury, right knee, initial encounter (principal); M94.261 Chondromalacia, right knee; X50.1XXA Overexertion from prolonged static or awkward postures, initial encounter
CPT/HCPCS: 29881; 81025; 84703; J0690; J1100; J1885; J2250; J2270; J2405; J2704; J3010; J3490; J7030

== ENCOUNTER 2023-08-06 08:22 | Emergency (ER) | payer OTHER, SELFPAY ==
[2023-08-06 08:31] VITALS: BP 182/99; PULSE 72; RESP 17; TEMP 37.1; O2SAT 99; BMI 40.7
--- NOTE | 2023-08-06 08:35 | W.ED.GENADLT ---
HPI - General Adult General: Chief complaint: Vaginal Bleeding Stated complaint: vaginal bleeding Time Seen by Provider: 08/06/23 08:31 Source: patient Mode of arrival: ambulatory History of Present Illness: 42-year-old female presents emergency room with mental menorrhagia for the last 3 days she has had painful cramping heavy. She has intermittently had heavy periods in the past she said this is more intense than what she usually had she has not had any fever chills chills vomiting or diarrhea. No dysuria urgency or frequency. Onset (ago): day(s) (3) Relieving factors: none Exacerbating factors: other Associated symptoms: Reports malaise; Deny chest pain, confusion, cough, diaphoresis, decreased appetite, dyspnea, fevers/chills, headache(s), nausea, rash, palpitations, seizures, short of breath, syncope, vomiting, weakness or other Treatments prior to arrival: none Review of Systems Const: Reports: malaise; Denies: fever(s), chills or diaphoresis Card: Denies: chest pain, palpitations or syncope Resp: Denies: dyspnea GI: Denies: abdominal pain, nausea or vomiting : Denies: dysuria, urinary frequency or urinary urgency Musc: Denies: neck pain or back pain Skin/Breast: Denies: rash Neuro: Denies: headache(s) or confusion PFS ED PFSH: Medical History Depression Menorrhagia Social History Smoking and tobacco/nicotine status: never used tobacco/nicotine Second hand smoke exposure: No Alcohol intake: never Substance/Drug Use: never Physical Exam Const: COMMON NORMALS: no acute distress GENERAL APPEARANCE: cooperative and comfortable ORIENTATION/CONSCIOUSNESS: Yes awake, Yes oriented to person, Yes oriented to place and Yes oriented to time HENMT: COMMON NORMALS: normocephalic, atraumatic and hearing grossly normal bilaterally HEAD & SCALP: normocephalic and atraumatic Resp: COMMON NORMALS: normal respiratory effort, No retractions, No use of accessory muscles and clear to auscultation bilaterally AUSCULTATION: clear to auscultation bilaterally Cardio: COMMON NORMALS: regular rate, regular rhythm and No murmurs present (Cardio) RATE: regular rate RHYTHM: regular rhythm GI: COMMON NORMALS: Soft to palpation and No hepatosplenomegaly present AUSCULTATION: Yes normoactive bowel sounds PALPATION: Yes Soft to palpation, No Tenderness to palpation present (GI), No Guarding due to palpation present (GI) and Yes No hepatosplenomegaly present Extremity: COMMON NORMALS: normal to inspection, capillary refill normal, no clubbing, cyanosis or edema, no calf tenderness and no pedal edema Neuro: SENSORIUM/ORIENTATION: Yes oriented to person, Yes oriented to place and Yes oriented to time Skin: COMMON NORMALS: no rashes or lesions noted GENERAL SKIN EXAM: no rashes or lesions noted Course Vital Signs: Vital signs: Vital Signs Temperature 98.7 F 08/06/23 08:31 Pulse Rate 71 08/06/23 09:43 Respiratory Rate 18 08/06/23 09:43 Blood Pressure 186/106 08/06/23 09:43 Pulse Oximetry 100 08/06/23 09:43 Oxygen Delivery Me thod Room Air 08/06/23 09:43 MDM - General Adult Medical Decision Making Medroxyprogesterone given as well as 1 dose of IV TXA started on oral TXA 650 mg tablets 2 tablets 3 times a day for 5 days. Also start medroxyprogesterone p.o. 10 mg daily for 10 days referral to gynecology. Discussed case Dr. Sutherland he concurs Medical Records I reviewed the patient's medical records. Lab Data I reviewed the patient's lab results. 08/06/23 08:41 08/06/23 08:41 Laboratory Results WBC 7.31 10^3/uL (3.29-11.43) 08/06/23 08:41 RBC 4.47 10^6/uL (3.85-5.65) 08/06/23 08:41 Hgb 10.20 g/dL (11.27-16.99) L 08/06/23 08:41 Hct 33.9 % (36-47) L 08/06/23 08:41 MCV 75.8 fl (85-98) L 08/06/23 08:41 MCH 22.8 pg (27-33) L 08/06/23 08:41 MCHC 30.1 g/dL (30-55) 08/06/23 08:41 RDW 17.4 % (12.1-15.1) H 08/06/23 08:41 Plt Count 515 10^3/cmm (157-399) H 08/06/23 08:41 MPV 8.6 fL (7.4-10.4) 08/06/23 08:41 Neut % (Auto) 63.8 % 08/06/23 08:41 Lymph % (Auto) 24.4 % 08/06/23 08:41 [place] % (Auto) 7.1 % 08/06/23 08:41 Eos % (Auto) 3.8 % 08/06/23 08:41 Baso % (Auto) 0.8 % 08/06/23 08:41 Neut # (Auto) 4.66 10^3/uL (1.8-7.7) 08/06/23 08:41 Lymph # (Auto) 1.8 10^3/uL (0.8-4.8) 08/06/23 08:41 [place] # (Auto) 0.5 10^3/uL (0.2-0.9) 08/06/23 08:41 Eos # (Auto) 0.3 10^3/uL (0.0-0.8) 08/06/23 08:41 Baso # (Auto) 0.1 10^3/uL (0.0-0.1) 08/06/23 08:41 Nucleated RBC % (auto) 0 % 08/06/23 08:41 Nucleated RBCs # 0.0 /100WBC 08/06/23 08:41 Sodium 139 mmol/L (136-145) 08/06/23 08:41 Potassium 4.5 mmol/L (3.5-5.1) 08/06/23 08:41 Chloride 102 mmol/L (98-107) 08/06/23 08:41 Carbon Dioxide 26 mmol/L (22-29) 08/06/23 08:41 Anion Gap 15.5 (5-19) 08/06/23 08:41 BUN 9 mg/dL (6-20) 08/06/23 08:41 Creatinine 0.5 mg/dL (0.5-0.9) 08/06/23 08:41 GFR Calculation 134.7 mL/min (90-130) H 08/06/23 08:41 Glucose 147 mg/dL (65-115) H 08/06/23 08:41 Calculated Osmolality 289 mOsm/kg (285-295) 08/06/23 08:41 Calcium 8.9 mg/dL (8.5-10.5) 08/06/23 08:41 HCG, Qual Negative (Negative) 08/06/23 08:41 No radiology studies performed this visit Discharge Plan Discharge Patient Disposition: Home Clinical Impression: Menometrorrhagia Condition: Stable Prescriptions: New medroxyprogesterone 10 mg tablet 10 mg PO DAILY 10 Days Qty: 10 0RF Rx Instructions: begin day 16 of cycle tranexamic acid 650 mg tablet 1,300 mg PO TID Qty: 18 0RF No Action citalopram [Celexa] 40 mg Tablet 40 mg PO DAILY propranolol 60 mg capsule,extended release 24 hr 60 mg PO DAILY dextroamphetamine-amphetamine 20 mg tablet 20 mg PO DAILY Discharge Orders: Discharge ED (Routine); Ordered 08/06/23 Ordered By: Louis Abernathy Referrals: Tahir Evans MD [Primary Care Provider] - Discharge Diet: Usual diet Discharge Activity: Resume usual activity Patient Instructions: Opioid Safety, Pain Management Activity Restrictions/Additional Instructions: Thank you for choosing [facility] for your healthcare needs today. Please realize this is an emergency room and that we are providing you with a medical screening exam and this may not be complete and all inclusive of all the testing and or work up that you may need to determine your ailment or severity of your illness. It is very important that you follow up as instructed or that you return to the Emergency Department should you have concerns or if your condition changes or worsens in any way. Case management will make arrangements for follow-up with gynecology. Stand Alone Forms: Work/School Release Coding Level of Care Code ED Billing Administrator for Kristin Garces
[2023-08-06 08:54] LABS: Basophils # 0.1 10^3/uL (0.0-0.1); Basophils % 0.8 %; Eosinophils # 0.3 10^3/uL (0.0-0.8); Eosinophils % 3.8 %; Hematocrit 33.9 % (36-47); Lymphocytes # 1.8 10^3/uL (0.8-4.8); Lymphocytes % 24.4 %; Mean Corpuscular HGB Conc 30.1 g/dL (30-55); Mean Corpuscular Hemoglobin 22.8 pg (27-33); Mean Corpuscular Volume 75.8 fl (85-98); Mean Platelet Volume 8.6 fL (7.4-10.4); Monocytes # 0.5 10^3/uL (0.2-0.9); Monocytes % 7.1 %; Neutrophils # 4.66 10^3/uL (1.8-7.7); Neutrophils % 63.8 %; Nucleated Red Blood Cells % 0 %; Platelet Count 515 10^3/cmm (157-399); Red Blood Count 4.47 10^6/uL (3.85-5.65); Red Cell Distribution Width 17.4 % (12.1-15.1); White Blood Count 7.31 10^3/uL (3.29-11.43)
[2023-08-06 09:08] LABS: HCG, Serum Qual Negative (Negative)
[2023-08-06 09:10] LABS: Anion Gap 15.5 (5-19); Blood Urea Nitrogen 9 mg/dL (6-20); Calcium 8.9 mg/dL (8.5-10.5); Carbon Dioxide 26 mmol/L (22-29); Chloride 102 mmol/L (98-107); Creatinine Clr Calc Pharmacy 167.5805; Glomerular Filtration Rate 134.7 mL/min (90-130); Glucose 147 mg/dL (65-115); Osmolality Calculated 289 mOsm/kg (285-295); Potassium 4.5 mmol/L (3.5-5.1); Sodium 139 mmol/L (136-145)
[2023-08-06] MEDS: tranexamic acid 1,000 MG/100 ML PREMIX 600 MG IV (09:28)
[2023-08-06] MEDS: medroxyprogesterone 2.5 mg Tablet 20 MG PO (09:38)
[2023-08-06 09:43] VITALS: BP 186/106; PULSE 71; RESP 18; O2SAT 100
--- NOTE | 2023-08-06 11:09 | DCPLANNER ---
Referral was sent to [facility] on 08/06/23 at 1109. [facility] to contact patient.
== END 2023-08-06 10:52 | disposition home or self-care (01) ==
PROVIDERS: Emergency Provider Family Medicine; PCP Family Medicine
DX: N92.1 Excessive and frequent menstruation with irregular cycle (principal)
CPT/HCPCS: 80048; 84703; 85025; 96374; 99284